=== PATIENT | male | born 1940 | race Caucasian/White ===

== ENCOUNTER 2016-05-02 12:40 | Emergency (ER) | payer MEDICARE, OTHER ==
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
[2016-05-02] MEDS ORDERED: cefTRIAXone 2 GM Vial IVPUSH ONE (12:50)
[2016-05-02] MEDS ORDERED: Acetaminophen 325 MG Tab PO ONE (12:50)
[2016-05-02] MEDS ORDERED: Albuterol/Ipratropium 3.0-0.5 MG/3 ML Neb Soln NEB ONE (12:51)
[2016-05-02] MEDS ORDERED: methylPREDNISolone Sodium Succinate 125 MG/2 ML SDV IVPUSH ONE (13:00)
[2016-05-02 13:29] LABS: O2 DELIVERY DEVICE ROOM AIR; O2 FLOW RATE 0; O2 SATURATION ARTERIAL 94 % (95-98); PCO2 ARTERIAL 30 mm/Hg0 (35-45); PO2 ARTERIAL 66 mm/Hg (80-100)
[2016-05-02 13:39] LABS: CHLORIDE,CL 103 mEq/L (98-106); SODIUM,NA 140 mEq/L (136-145)
[2016-05-02 14:45] VITALS: BP 153/69
[2016-05-02] MEDS ORDERED: Sodium Chloride 0.9% 3,000 ML ONE (15:20)
== END 2016-05-02 15:55 ==
LOC: CC.ED 12:40
DX: A41.9 Sepsis, unspecified organism (principal); D64.9 Anemia, unspecified; D69.9 Hemorrhagic condition, unspecified; R06.02 Shortness of breath; R05 Cough; E78.00 Pure hypercholesterolemia, unspecified; I10 Essential (primary) hypertension; Z88.2 Allergy status to sulfonamides; Z87.891 Personal history of nicotine dependence
CPT/HCPCS: 36415; 36600; 71020; 80053; 81001; 82270; 82550; 82803; 83605; 84484; 85025; 85610; 85730; 86140; 87040; 93005; 96374; 96375; 99285; A9270; J0696; J2930; J7030; 93010; 96361

== ENCOUNTER 2016-06-29 10:00 | Emergency (ER) | payer MEDICARE, OTHER ==
[2016-06-29] MEDS ORDERED: Sodium Chloride 0.9% 10 ML Syringe FLUSH PRN (10:35)
[2016-06-29] MEDS ORDERED: Levofloxacin/Dextrose 5%-Water 500 MG in Premix Bag 1 BAG IV SCH (11:00)
[2016-06-29] MEDS ORDERED: Acetaminophen 500 MG Tab PO PRN (11:14)
[2016-06-29 11:17] LABS: CHLORIDE,CL 102 mEq/L (98-106); SODIUM,NA 141 mEq/L (136-145)
--- NOTE | 2016-06-29 12:18 | EDM.PDOC ---
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 Has been in and out of the hospital for chemotherapy twice since then, and has only been home this time for a few days when he started running fever. 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 - Related Data Allergies/ADRs: Allergies Allergy/AdvReac Type Severity Reaction Status Date / Time meropenem [From Merrem] Allergy Rash Verified 06/29/16 10:09 Penicillins Allergy Hives Verified 06/29/16 10:09 Sulfa (Sulfonamide Allergy Hives Verified 06/29/16 10:09 Antibiotics) Home Meds: Home Meds atorvaSTATin [Lipitor] 10 mg PO DAILY 06/25/15 [History] metFORMIN [Glucophage] 850 mg PO BID 05/02/16 [History] Amiodarone HCl [Amiodarone HCl] 200 mg PO DAILY 06/26/16 [History] Furosemide [Furosemide] 20 mg PO DAILY 06/26/16 [History] Insulin Aspart [NovoLOG] 4 - 15 unit SUBCUT WITHMEALSANDBED 06/26/16 [History] Insulin Aspart [NovoLOG] 9 unit SUBCUT TIDAC 06/26/16 [History] Insulin Glarg,Human.Rec.Analog [LantUS Solostar] 20 unit SUBCUT QAM 06/26/16 [ History] Metoprolol Tartrate [Metoprolol Tartrate] 12.5 mg PO BID 06/26/16 [History] traZODone 100 mg PO BEDTIME 06/26/16 [History] Past Medical History Cardiovascular History: Reports: High cholesterol, Hypertension Musculoskeletal History: Reports: Fracture, Osteoarthritis Psychiatric History: Reports: Anxiety Endocrine/Metabolic History: Reports: Diabetes, type II Oncologic (Cancer) History: Reports: Leukemia, Other (see below) Other Oncologic History: ALL - Past Surgical History HEENT Surgical History: Reports: Cataract surgery GI Surgical History: Reports: Colonoscopy, Polypectomy Musculoskeletal Surgical History: Reports: Other (see below) Other Musculoskeletal Surgeries/Procedures:: left elbow surgery Oncologic Surgical History: Reports: Other (see below) Other Oncologic Surgeries/Procedures: bone marrow biopsy Social & Family History - Family History Family Medical History: Noncontributory Cardiac: Reports: Hypertension - Tobacco Use Smoking Status *Q: Former Smoker Years of Tobacco use: 50 Used Tobacco, but Quit: Yes Month Tobacco Last Used: 2013 - Recreational Drug Use Recreational Drug Use: No - Living Situation & Occupation Living situation: Reports: , with family ED ROS GENERAL - Review of Systems Review Of Systems: See Below Constitutional: Reports: fever, chills, malaise, weakness HEENT: Reports: No symptoms Respiratory: Reports: No Symptoms Cardiovascular: Reports: No symptoms Endocrine: Reports: no symptoms GI/Abdominal: Reports: No symptoms Musculoskeletal: Reports: no symptoms Skin: Reports: bruising Neurological: Reports: No Symptoms Psychiatric: Reports: No symptoms Hematologic/Lymphatic: Reports: anemia, easy bleeding ED EXAM, SEPSIS - Physical Exam Exam: See Below Exam Limited By: No limitations General Appearance: alert, WD/WN Ears: normal external exam Nose: other (Sligh nose bleed today) Throat/Mouth: Normal inspection Head: atraumatic Neck: normal inspection Respiratory/Chest: no respiratory distress Cardiovascular: normal peripheral pulses GI/Abdominal: normal bowel sounds Extremities: normal inspection Neurological: alert, oriented Psychiatric: normal affect Skin: Warm, Dry, Ecchymosis Course - Vital Signs Last Recorded V/S: Last Vital Signs Temp 104 F H 06/29/16 11:50 Pulse 87 06/29/16 10:03 Resp 20 06/29/16 10:03 BP 155/69 H 06/29/16 10:03 Pulse Ox 98 06/29/16 10:03 - Orders/Labs/Meds Orders: Active Orders 24 hr Category Date Time Status Oxygen Therapy, ED [RC] ASDIRECTED Care 06/29/16 12:12 Active Chest 2V [CR] Stat Exams 06/29/16 10:35 Taken CULTURE BLOOD [BC] Stat Lab 06/29/16 10:53 Received CULTURE BLOOD [BC] Stat Lab 06/29/16 10:57 Received RED BLOOD CELLS LP [BBK] Stat Lab 06/29/16 11:56 Ordered TYPE AND SCREEN [BBK] Stat Lab 06/29/16 11:56 Ordered UA W/MICROSCOPIC [URIN] Stat Lab 06/29/16 10:35 Uncollected Acetaminophen [Tylenol Extra Strength] Med 06/29/16 11:14 Active 1,000 mg PO Q4H PRN Levofloxacin/Dextrose 5%-Water [Levaquin in D5W 500 MG/ Med 06/29/16 11:00 Active 100 ML] 500 mg Premix Bag 1 bag IV Q24H Sodium Chloride 0.9% [Saline Flush] Med 06/29/16 10:35 Active 10 ml FLUSH ASDIRECTED PRN Blood Culture x2 Reflex Set [OM.PC] Stat Oth 06/29/16 10:35 Ordered Saline Lock Insert [OM.PC] Routine Oth 06/29/16 10:35 Ordered Medication Orders Acetaminophen (Tylenol Extra Strength) 1,000 mg PO Q4H PRN PRN Reason: Fever Last Admin: 06/29/16 11:20 Dose: 1,000 mg Levofloxacin/Dextrose 500 mg/ (Premix) 100 mls @ 100 mls/hr IV Q24H ELIZABETH Sodium Chloride (Saline Flush) 10 ml FLUSH ASDIRECTED PRN PRN Reason: Keep Vein Open Labs: Laboratory Tests 06/29/16 06/29/16 Range/Units 10:53 10:53 WBC 0.3 L* (5.0-10.0) 10^3/uL RBC 2.08 L (4.50-6.00) 10^6/uL Hgb 6.4 L* (14.0-18.0) g/dL Hct 20.2 L (40.0-54.0) % MCV 97.1 H (82.0-94.0) fL MCH 30.8 (27.0-32.0) pg MCHC 31.7 L (33.0-38.0) g/dL RDW Coeff of Thu 16.7 H (11.0-15.0) % Plt Count 0 L* (150-400) 10^3/uL MPV TNP Neut % (Auto) Cancelled Lymph % (Auto) Cancelled [place] % (Auto) Cancelled Eos % (Auto) Cancelled Baso % (Auto) Cancelled Neut # (Auto) Cancelled Lymph # (Auto) Cancelled [place] # (Auto) Cancelled Eos # (Auto) Cancelled Baso # (Auto) Cancelled Add Manual Diff Cancelled Sodium 141 (136-145) mEq/L Potassium 3.7 (3.5-5.0) mEq/L Chloride 102 (98-106) mEq/L Carbon Dioxide 28 (21-32) mmol/L BUN 15 (7-18) mg/dL Creatinine 0.9 (0.7-1.3) mg/dL Est Cr Clr Drug Dosing TNP Estimated GFR (MDRD) > 60 (>=60) mL/min Glucose 147 H (75-99) mg/dL Calcium 8.3 L (8.4-10.1) mg/dL Total Bilirubin 0.6 (0.0-1.0) mg/dL AST 11 L (15-37) U/L ALT 20 (12-78) U/L Alkaline Phosphatase 63 (46-116) U/L Total Protein 6.0 L (6.4-8.2) g/dL Albumin 2.9 L (3.4-5.0) g/dL Meds: Medications Generic Name Dose Route Start Last Admin Trade Name Freq PRN Reason Stop Dose Admin Acetaminophen 1,000 mg 06/29/16 11:14 06/29/16 11:20 Tylenol Extra Strength PO 1,000 mg Q4H PRN Administration Fever Levofloxacin/Dextrose 500 mg/ 100 mls @ 100 mls/hr 06/29/16 11:00 Premix IV Q24H ELIZABETH Sodium Chloride 10 ml 06/29/16 10:35 Saline Flush FLUSH ASDIRECTED PRN Keep Vein Open Discontinued Medications Generic Name Dose Route Start Last Admin Trade Name Freq PRN Reason Stop Dose Admin Vancomycin HCl 1,000 mg/ 250 mls @ 250 mls/hr 06/29/16 10:44 06/29/16 11:25 Sodium Chloride IV 06/29/16 11:43 250 mls/hr ONETIME ONE Administration Departure - Departure Time of Disposition: 12:24 Disposition: DC/Tfer to Acute Hospital 02 Condition: serious Clinical Impression: Systemic infection, Thrombocytopenia Sepsis Qualifiers: Sepsis type: sepsis due to unspecified organism Qualified Code(s): A41.9 - Sepsis, unspecified organism Anemia Qualifiers: Anemia type: unspecified type Qualified Code(s): D64.9 - Anemia, unspecified Forms: ED Department Discharge Care Plan Goals: I spoke with Dr Montez at [facility] in [place] who agreed to take patient in transfer by ALS ground unit. I then spoke with the hospitalist o arrange a direct admission the oncology floor. - My Orders Last 24 Hours: My Active Orders 06/29/16 10:35 Chest 2V [CR] Stat UA W/MICROSCOPIC [URIN] Stat Sodium Chloride 0.9% [Saline Flush] 10 ml FLUSH ASDIRECTED PRN Blood Culture x2 Reflex Set [OM.PC] Stat Saline Lock Insert [OM.PC] Routine 06/29/16 10:53 CULTURE BLOOD [BC] Stat 06/29/16 10:57 CULTURE BLOOD [BC] Stat 06/29/16 11:00 Levofloxacin/Dextrose 5%-Water [Levaquin in D5W 500 MG/100 ML] 500 mg Premix Bag 1 bag IV Q24H 06/29/16 11:14 Acetaminophen [Tylenol Extra Strength] 1,000 mg PO Q4H PRN 06/29/16 11:56 RED BLOOD CELLS LP [BBK] Stat TYPE AND SCREEN [BBK] Stat 06/29/16 12:12 Oxygen Therapy, ED [RC] ASDIRECTED - Assessment/Plan Last 24 Hours: My Active Orders 06/29/16 10:35 Chest 2V [CR] Stat UA W/MICROSCOPIC [URIN] Stat Sodium Chloride 0.9% [Saline Flush] 10 ml FLUSH ASDIRECTED PRN Blood Culture x2 Reflex Set [OM.PC] Stat Saline Lock Insert [OM.PC] Routine 06/29/16 10:53 CULTURE BLOOD [BC] Stat 06/29/16 10:57 CULTURE BLOOD [BC] Stat 06/29/16 11:00 Levofloxacin/Dextrose 5%-Water [Levaquin in D5W 500 MG/100 ML] 500 mg Premix Bag 1 bag IV Q24H 06/29/16 11:14 Acetaminophen [Tylenol Extra Strength] 1,000 mg PO Q4H PRN 06/29/16 11:56 RED BLOOD CELLS LP [BBK] Stat TYPE AND SCREEN [BBK] Stat 06/29/16 12:12 Oxygen Therapy, ED [RC] ASDIRECTED
[2016-06-29] MEDS ORDERED: Sodium Chloride 0.9% 250 ML IV SCH (13:00)
[2016-06-29 13:10] VITALS: BP 119/48
== END 2016-06-29 13:43 ==
LOC: CC.ED 10:00
DX: A41.9 Sepsis, unspecified organism (principal); D64.9 Anemia, unspecified; D69.6 Thrombocytopenia, unspecified; R04.0 Epistaxis; E78.00 Pure hypercholesterolemia, unspecified; I10 Essential (primary) hypertension; M19.90 Unspecified osteoarthritis, unspecified site; F41.9 Anxiety disorder, unspecified; E11.9 Type 2 diabetes mellitus without complications; Z88.0 Allergy status to penicillin; Z88.2 Allergy status to sulfonamides; Z88.8 Allergy status to other drugs, medicaments and biological substances; Z79.84 Long term (current) use of oral hypoglycemic drugs; Z79.4 Long term (current) use of insulin; Z79.899 Other long term (current) drug therapy; Z98.49 Cataract extraction status, unspecified eye; Z87.891 Personal history of nicotine dependence
CPT/HCPCS: 36415; 36430; 71020; 80053; 81001; 85027; 86850; 86900; 86901; 86920; 86922; 87040; 87077; 96365; 96367; 99285; A9270; J1956; J3370; J7050; P9016; 87186; 99284

== ENCOUNTER 2016-07-27 18:19 | Inpatient (IN) | payer MEDICARE, OTHER ==
[2016-07-27 18:52] LABS: CHLORIDE,CL 102 mEq/L (98-106); SODIUM,NA 139 mEq/L (136-145)
[2016-07-27] MEDS ORDERED: Ondansetron 4 MG Tab.DIS PO PRN (18:59)
[2016-07-27] MEDS ORDERED: Acetaminophen 325 MG Tab PO PRN (18:59)
--- NOTE | 2016-07-27 18:59 | EDM.PDOC ---
ED HPI GENERAL MEDICAL PROBLEM - General Chief Complaint: Fever Stated Complaint: fever Time Seen by Provider: 07/27/16 18:19 Source of Information: Reports: Patient History Limitations: Reports: No Limitations - History of Present Illness INITIAL COMMENTS - FREE TEXT/NARRATIVE: has a history of treatment of leukemia, started having chills today, and running fever. Onset: Today Duration: Hour(s): Severity: Moderate Associated Symptoms: Reports: No Other Symptoms - Related Data Allergies Allergy/AdvReac Type Severity Reaction Status Date / Time meropenem [From Merrem] Allergy Rash Verified 07/27/16 18:51 Penicillins Allergy Hives Verified 07/27/16 18:51 Sulfa (Sulfonamide Allergy Hives Verified 07/27/16 18:51 Antibiotics) Home Meds: Home Meds atorvaSTATin [Lipitor] 10 mg PO DAILY 06/25/15 [History] metFORMIN [Glucophage] 850 mg PO BID 05/02/16 [History] Amiodarone HCl [Amiodarone HCl] 200 mg PO DAILY 06/26/16 [History] Furosemide [Furosemide] 20 mg PO DAILY 06/26/16 [History] Insulin Aspart [NovoLOG] 4 - 15 unit SUBCUT WITHMEALSANDBED 06/26/16 [History] Insulin Aspart [NovoLOG] 9 unit SUBCUT TIDAC 06/26/16 [History] Insulin Glarg,Human.Rec.Analog [LantUS Solostar] 20 unit SUBCUT QAM 06/26/16 [ History] Metoprolol Tartrate [Metoprolol Tartrate] 12.5 mg PO BID 06/26/16 [History] traZODone 100 mg PO BEDTIME 06/26/16 [History] Past Medical History Cardiovascular History: Reports: High Cholesterol, Hypertension Musculoskeletal History: Reports: Fracture, Osteoarthritis Psychiatric History: Reports: Anxiety Endocrine/Metabolic History: Reports: Diabetes, Type II Oncologic (Cancer) History: Reports: Leukemia, Other (See Below) Other Oncologic History: ALL - Past Surgical History HEENT Surgical History: Reports: Cataract Surgery Musculoskeletal Surgical History: Reports: Other (See Below) Oncologic Surgical History: Reports: Other (See Below) Social & Family History - Family History Family Medical History: Noncontributory Cardiac: Reports: Hypertension - Tobacco Use Smoking Status *Q: Former Smoker Years of Tobacco use: 50 Used Tobacco, but Quit: Yes Month Tobacco Last Used: 2013 - Recreational Drug Use Recreational Drug Use: No - Living Situation & Occupation Living situation: Reports: , with Family ED ROS GENERAL - Review of Systems Review Of Systems: See Below Constitutional: Reports: No Symptoms, Fever, Chills HEENT: Reports: No Symptoms Respiratory: Reports: No Symptoms Cardiovascular: Reports: No Symptoms Endocrine: Reports: No Symptoms GI/Abdominal: Reports: No Symptoms : Reports: No Symptoms Musculoskeletal: Reports: No Symptoms Skin: Reports: No Symptoms Neurological: Reports: No Symptoms Psychiatric: Reports: No Symptoms Hematologic/Lymphatic: Reports: No Symptoms Immunologic: Reports: No Symptoms ED EXAM, SEPSIS - Physical Exam Exam: See Below Exam Limited By: No Limitations General Appearance: Alert, WD/WN Ears: Normal External Exam Nose: Normal Inspection Throat/Mouth: Normal Inspection Head: Atraumatic, Normocephalic Respiratory/Chest: No Respiratory Distress, Lungs Clear Cardiovascular: Normal Peripheral Pulses GI/Abdominal: Normal Bowel Sounds, Soft Neurological: Alert, Oriented Psychiatric: Normal Affect Skin: Warm, Dry Course - Orders/Labs/Meds Orders: Active Orders 24 hr Category Date Time Status Chest 2V [CR] Stat Exams 07/27/16 18:33 Taken COMPREHENSIVE METABOLIC PN,CMP [CHEM] Routine Lab 07/27/16 18:31 Received CULTURE BLOOD [BC] Routine Lab 07/27/16 18:31 Received CULTURE BLOOD [BC] Stat Lab 07/27/16 18:32 Received Labs: Laboratory Tests 07/27/16 07/27/16 Range/Units 18:31 18:39 WBC 0.2 L* (5.0-10.0) 10^3/uL RBC 2.49 L (4.50-6.00) 10^6/uL Hgb 7.9 L* (14.0-18.0) g/dL Hct 24.4 L (40.0-54.0) % MCV 98.0 H (82.0-94.0) fL MCH 31.7 (27.0-32.0) pg MCHC 32.4 L (33.0-38.0) g/dL RDW Coeff of Thu 16.8 H (11.0-15.0) % Plt Count 22 L* (150-400) 10^3/uL Neut % (Auto) 4.8 L (35-85) % Lymph % (Auto) 61.9 H (10-55) % [place] % (Auto) 14.3 (0-16) % Eos % (Auto) 9.5 H (0-5) % Baso % (Auto) 9.5 H (0-3) % Neut # (Auto) 0.01 L (1.80-7.00) 10^3/uL Lymph # (Auto) 0.13 L (1.00-4.80) 10^3/uL [place] # (Auto) 0.03 (0.00-0.80) 10^3/uL Eos # (Auto) 0.02 (0.00-0.45) 10^3/uL Baso # (Auto) 0.02 10^3/uL Urine Color Dark yellow (YELLOW) Urine Appearance Clear (CLEAR) Urine pH 5.5 (4.5-8.0) Ur Specific [place] 1.028 H (1.003-1.020) Urine Protein 100 H (NEGATIVE) mg/dL Urine Glucose (UA) Negative (NEGATIVE) mg/dL Urine Ketones Trace H (NEGATIVE) mg/dL Urine Occult Blood Negative (NEGATIVE) Urine Nitrite Negative (NEGATIVE) Urine Bilirubin Small H (NEGATIVE) Urine Urobilinogen 0.2 (0.2-1.0) EU/dL Ur Leukocyte Esterase Negative (NEGATIVE) Urine RBC Not seen (0-5) /HPF Urine WBC Not seen (0-5) /HPF Ur Squamous Epith Cells Few H (NOT SEEN) /HPF Urine Bacteria Occasional H (NOT SEEN) /HPF Urine Mucus Occasional H (NOT SEEN) /HPF Departure - Departure Time of Disposition: 18:57 ( who suggested admission to the hospital and broad spectrum anibiotics for a few days. if patient does not respond she may transfer him to [place]) Disposition: Admitted As Inpatient 67 Clinical Impression: Sepsis, Sepsis - Discharge Information Forms: ED Department Discharge - My Orders Last 24 Hours: My Active Orders 07/27/16 18:33 Chest 2V [CR] Stat - Assessment/Plan Last 24 Hours: My Active Orders 07/27/16 18:33 Chest 2V [CR] Stat
[2016-07-27] MEDS ORDERED: Insulin Aspart 100 Units/ML 3 ML Pen SUBCUT STA (19:11)
[2016-07-27] MEDS ORDERED: Vancomycin 500 MG SDV IV SCH (19:15)
[2016-07-27] MEDS ORDERED: Levofloxacin/Dextrose 5%-Water 500 MG in Premix Bag 1 BAG IV SCH (19:15)
[2016-07-27] MEDS ORDERED: traZODone 50 MG Tab PO SCH (20:00)
[2016-07-27] MEDS ORDERED: Sodium Chloride 0.9% 0 ML ONE (21:21)
[2016-07-27] MEDS ORDERED: Sodium Chloride 0.9% 250 ML ONE (21:23)
[2016-07-27] MEDS: Metoprolol Tartrate 25 MG Tab PO SCH (21:33)
[2016-07-27] MEDS: Acetaminophen 500 MG Tab PO PRN (21:35)
[2016-07-27] MEDS ORDERED: Insulin Aspart 100 Units/ML 3 ML Pen ONE (21:39)
[2016-07-27] MEDS ORDERED: Vancomycin 500 MG SDV ONE (22:47)
[2016-07-27] MEDS ORDERED: Vancomycin 1.5 GM in Sodium Chloride 0.9% 500 ML IV SCH (23:00)
[2016-07-28] MEDS: Acetaminophen 500 MG Tab PO PRN ×3 (01:30→10:45)
[2016-07-28] MEDS ORDERED: Furosemide 20 MG Tab PO SCH (08:00)
[2016-07-28] MEDS ORDERED: atorvaSTATin 10 MG Tab PO SCH (08:00)
[2016-07-28] MEDS ORDERED: Insulin Detemir 100 Units/ML 3 ML Pen SUBCUT SCH ×2 (08:00→08:40)
[2016-07-28] MEDS ORDERED: Insulin Aspart 100 Units/ML 3 ML Pen SUBCUT SCH (08:00)
[2016-07-28] MEDS ORDERED: INSULIN GLARG HUMAN REC ANALOG 20 UNIT SUBCUT SCH (08:00)
[2016-07-28] MEDS ORDERED: Amiodarone 200 MG Tab PO SCH (08:00)
[2016-07-28] MEDS ORDERED: [UNRECOGNIZED DRUG - OTHER] SUBCUT SCH (08:00)
[2016-07-28 08:12] LABS: CHLORIDE,CL 103 mEq/L (98-106); SODIUM,NA 140 mEq/L (136-145)
[2016-07-28] MEDS: Metoprolol Tartrate 25 MG Tab PO SCH (08:14)
[2016-07-28 08:18] VITALS: BP 145/67
--- NOTE | 2016-07-28 10:08 | PCM.PN ---
- General Info Date of Service: 07/28/16 (Platelet count dropped from 22,000 to 10,000 in the last 24 hours. I spoke with the patient about the need for platelet transfusion which we cannot do here) Admission Dx/Problem (Free Text): Fever, thrombocytopenia, sepsis Functional Status: Reports: pain controlled - Review of Systems General: Reports: No Symptoms HEENT: Reports: no symptoms Pulmonary: Reports: no symptoms Cardiovascular: Reports: No Symptoms Musculoskeletal: Reports: no symptoms Skin: Reports: no symptoms Neurological: Reports: No Symptoms Psychiatric: Reports: no symptoms Systems Review Comment:: Patient is stable at this time. Had a high fever last night. Platelet count is lower today. - Patient Data Vitals - most recent: Last Vital Signs Temp 99.0 F 07/28/16 08:00 Pulse 81 07/28/16 08:14 Resp 24 H 07/28/16 08:00 BP 145/67 H 07/28/16 08:14 Pulse Ox 96 07/28/16 08:00 Weight - most recent: 243 lb 2.718 oz Lab Results last 24 hrs: Laboratory Results - last 24 hr 07/28/16 07/28/16 07/28/16 Range/Units 07:30 07:30 08:16 WBC 0.2 L* (5.0-10.0) 10^3/uL RBC 2.36 L (4.50-6.00) 10^6/uL Hgb 7.4 L* (14.0-18.0) g/dL Hct 23.0 L (40.0-54.0) % MCV 97.5 H (82.0-94.0) fL MCH 31.4 (27.0-32.0) pg MCHC 32.2 L (33.0-38.0) g/dL RDW Coeff of Thu 16.5 H (11.0-15.0) % Plt Count 10 L* (150-400) 10^3/uL Neut % (Auto) 8.7 L (35-85) % Lymph % (Auto) 60.9 H (10-55) % [place] % (Auto) 17.4 H (0-16) % Eos % (Auto) 8.7 H (0-5) % Baso % (Auto) 4.3 H (0-3) % Neut # (Auto) 0.02 L (1.80-7.00) 10^3/uL Lymph # (Auto) 0.14 L (1.00-4.80) 10^3/uL [place] # (Auto) 0.04 (0.00-0.80) 10^3/uL Eos # (Auto) 0.02 (0.00-0.45) 10^3/uL Baso # (Auto) 0.01 10^3/uL Sodium 140 (136-145) mEq/L Potassium 3.7 (3.5-5.0) mEq/L Chloride 103 (98-106) mEq/L Carbon Dioxide 28 (21-32) mmol/L BUN 10 (7-18) mg/dL Creatinine 1.0 (0.7-1.3) mg/dL Est Cr Clr Drug Dosing 69.03 mL/min Estimated GFR (MDRD) > 60 (>=60) mL/min Glucose 158 H (75-99) mg/dL POC Glucose 163 H (75-105) mg/dl Calcium 8.5 (8.4-10.1) mg/dL Total Bilirubin 0.5 (0.0-1.0) mg/dL AST 7 L (15-37) U/L ALT 14 (12-78) U/L Alkaline Phosphatase 67 (46-116) U/L Total Protein 5.7 L (6.4-8.2) g/dL Albumin 2.8 L (3.4-5.0) g/dL Med Orders - Current: Current Medications Acetaminophen (Tylenol Extra Strength) 1,000 mg PO Q4H PRN PRN Reason: Fever Last Admin: 07/28/16 05:36 Dose: 1,000 mg Amiodarone HCl (Cordarone) 200 mg PO DAILY [facility] Last Admin: 07/28/16 08:10 Dose: 200 mg Atorvastatin Calcium (Lipitor) 10 mg PO DAILY [facility] Last Admin: 07/28/16 08:17 Dose: 10 mg Furosemide (Lasix) 20 mg PO DAILY [facility] Last Admin: 07/28/16 08:11 Dose: 20 mg Levofloxacin/Dextrose 500 mg/ (Premix) 100 mls @ 100 mls/hr IV Q24H [facility] Last Admin: 07/27/16 21:30 Dose: 100 mls/hr Vancomycin HCl 1.5 gm/ Sodium (Chloride) 500 mls @ 250 mls/hr IV Q12H [facility] Insulin Aspart (Novolog) 0 unit SUBCUT WITHMEALSANDBED [facility] PRN Reason: Protocol Last Admin: 07/28/16 09:03 Dose: 2 units Insulin Detemir (Levemir) 20 unit SUBCUT QAM [facility] Last Admin: 07/28/16 08:53 Dose: 20 units Metformin HCl (Glucophage) 850 mg PO BID [facility] Last Admin: 07/28/16 08:11 Dose: 850 mg Metoprolol Tartrate (Lopressor) 12.5 mg PO BID [facility] Last Admin: 07/28/16 08:14 Dose: 12.5 mg Ondansetron HCl (Zofran Odt) 4 mg PO Q4H PRN PRN Reason: nausea, able to take PO Trazodone HCl (Trazodone) 100 mg PO BEDTIME [facility] Last Admin: 07/27/16 21:19 Dose: Not Given Vancomycin HCl (Pharmacy To Dose - Vancomycin) 1 dose .XX Q12H [facility] Discontinued Medications Acetaminophen (Tylenol) 650 mg PO Q4H PRN PRN Reason: Pain (Mild 1-3)/fever Sodium Chloride (Normal Saline) Confirm Administered Dose 500 mls @ as directed .ROUTE .STK-MED ONE Stop: 07/27/16 21:22 Last Admin: 07/27/16 21:19 Dose: Not Given Sodium Chloride (Normal Saline) Confirm Administered Dose 250 mls @ as directed .ROUTE .STK-MED ONE Stop: 07/27/16 21:24 Last Admin: 07/27/16 21:19 Dose: Not Given Vancomycin HCl 1 gm/ Sodium (Chloride) 250 mls @ 167 mls/hr IV Q12H [facility] Vancomycin HCl 1 gm/ Sodium (Chloride) 250 mls @ 167 mls/hr IV ONETIME ONE Stop: 07/27/16 22:52 Last Admin: 07/27/16 22:00 Dose: Not Given Vancomycin HCl 1.5 gm/ Sodium (Chloride) 500 mls @ 250 mls/hr IV Q24H [facility] Stop: 07/28/16 00:59 Last Admin: 07/27/16 22:38 Dose: 250 mls/hr Insulin Aspart (Novolog) [address] [facility] PRN Reason: Protocol Stop: 07/27/16 19:12 Last Admin: 07/27/16 21:34 Dose: 2 units Insulin Aspart (Novolog) Confirm Administered Dose 300 unit .ROUTE .STK-MED ONE Stop: 07/27/16 21:40 Last Admin: 07/27/16 21:52 Dose: Not Given Vancomycin HCl (Vancomycin) 1,000 mg IV Q12H [facility] Last Admin: 07/27/16 21:23 Dose: Not Given Vancomycin HCl (Pharmacy To Dose - Vancomycin) 1 dose .XX ASDIRECTED [facility] Vancomycin HCl (Vancomycin) Confirm Administered Dose 500 mg .ROUTE .STK-MED ONE Stop: 07/27/16 22:48 Last Admin: 07/27/16 22:55 Dose: Not Given - Problem List Review Problem List Initiated/Reviewed/Updated: Yes - My Orders Last 24 Hours: My Active Orders 07/27/16 20:18 Up ad Helen [RC] .PRN 07/27/16 20:19 Acetaminophen [Tylenol Extra Strength] 1,000 mg PO Q4H PRN 07/28/16 08:00 Insulin Aspart [NovoLOG] See Protocol SUBCUT WITHMEALSANDBED Vancomycin Pharmacy to Dose [Pharmacy to Dose - Vancomycin] 1 dose .XX Q12H 07/28/16 08:40 Insulin Detemir [Levemir] 20 unit SUBCUT QAM 07/28/16 11:00 Vancomycin 1.5 gm Sodium Chloride 0.9% [Normal Saline] 500 ml IV Q12H 07/29/16 06:00 CBC WITH AUTO DIFF [HEME] DAILY CMP [COMPREHENSIVE METABOLIC PN,CMP] [CHEM] DAILY 07/30/16 06:00 CBC WITH AUTO DIFF [HEME] DAILY CMP [COMPREHENSIVE METABOLIC PN,CMP] [CHEM] DAILY
--- NOTE | 2016-07-28 10:19 | PCM.DCSUM1 ---
Discharge Summary - Hospital Course Free Text/Narrative:: Patient was admitted to the hospital yesterday after complaing o fever. Patient is a cancer patient of Dr Cooper. I spoke to Dr. Curiel who suggested I admit the patient to inpatient and starting antibiotics to see if he responded. This morning his platelet counts are down from 22,000 to 10,000 and will need platelet transfusion. I spoke with Dr Curiel again this morning who agrred to have the patient transferred through the hospitalist service. - Discharge Data Discharge Date: 07/28/16 Discharge Disposition: DC/Tfer to Acute Hospital 02 Condition: Fair - Patient Instructions Diet: Usual Diet as Tolerated Driving: Do Not Drive Showering/Bathing: May Shower - Discharge Plan Home Medications: Home Meds atorvaSTATin [Lipitor] 10 mg PO DAILY 06/25/15 [History] metFORMIN [Glucophage] 850 mg PO BID 05/02/16 [History] Amiodarone HCl [Amiodarone HCl] 200 mg PO DAILY 06/26/16 [History] Furosemide [Furosemide] 40 mg PO DAILY 06/26/16 [History] Insulin Aspart [NovoLOG] 4 - 15 unit SUBCUT WITHMEALSANDBED 06/26/16 [History] Insulin Glarg,Human.Rec.Analog [LantUS Solostar] 20 unit SUBCUT QAM 06/26/16 [ History] Metoprolol Tartrate [Metoprolol Tartrate] 12.5 mg PO BID 06/26/16 [History] Forms: ED Department Discharge Referrals: Dariel Amato MD [Primary Care Provider] - - Discharge Summary/Plan Comment DC Time >30 min.: No - Patient Data Vitals - Most Recent: Last Vital Signs Temp 99.0 F 07/28/16 08:00 Pulse 81 07/28/16 08:14 Resp 24 H 07/28/16 08:00 BP 145/67 H 07/28/16 08:14 Pulse Ox 96 07/28/16 08:00 Weight - Most Recent: 243 lb 2.718 oz Lab Results - Last 24 hrs: Laboratory Results - last 24 hr 07/28/16 07/28/16 07/28/16 Range/Units 07:30 07:30 08:16 WBC 0.2 L* (5.0-10.0) 10^3/uL RBC 2.36 L (4.50-6.00) 10^6/uL Hgb 7.4 L* (14.0-18.0) g/dL Hct 23.0 L (40.0-54.0) % MCV 97.5 H (82.0-94.0) fL MCH 31.4 (27.0-32.0) pg MCHC 32.2 L (33.0-38.0) g/dL RDW Coeff of Thu 16.5 H (11.0-15.0) % Plt Count 10 L* (150-400) 10^3/uL Neut % (Auto) 8.7 L (35-85) % Lymph % (Auto) 60.9 H (10-55) % [place] % (Auto) 17.4 H (0-16) % Eos % (Auto) 8.7 H (0-5) % Baso % (Auto) 4.3 H (0-3) % Neut # (Auto) 0.02 L (1.80-7.00) 10^3/uL Lymph # (Auto) 0.14 L (1.00-4.80) 10^3/uL [place] # (Auto) 0.04 (0.00-0.80) 10^3/uL Eos # (Auto) 0.02 (0.00-0.45) 10^3/uL Baso # (Auto) 0.01 10^3/uL Sodium 140 (136-145) mEq/L Potassium 3.7 (3.5-5.0) mEq/L Chloride 103 (98-106) mEq/L Carbon Dioxide 28 (21-32) mmol/L BUN 10 (7-18) mg/dL Creatinine 1.0 (0.7-1.3) mg/dL Est Cr Clr Drug Dosing 69.03 mL/min Estimated GFR (MDRD) > 60 (>=60) mL/min Glucose 158 H (75-99) mg/dL POC Glucose 163 H (75-105) mg/dl Calcium 8.5 (8.4-10.1) mg/dL Total Bilirubin 0.5 (0.0-1.0) mg/dL AST 7 L (15-37) U/L ALT 14 (12-78) U/L Alkaline Phosphatase 67 (46-116) U/L Total Protein 5.7 L (6.4-8.2) g/dL Albumin 2.8 L (3.4-5.0) g/dL Med Orders - Current: Current Medications Acetaminophen (Tylenol Extra Strength) 1,000 mg PO Q4H PRN PRN Reason: Fever Last Admin: 07/28/16 05:36 Dose: 1,000 mg Amiodarone HCl (Cordarone) 200 mg PO DAILY [facility] Last Admin: 07/28/16 08:10 Dose: 200 mg Atorvastatin Calcium (Lipitor) 10 mg PO DAILY [facility] Last Admin: 07/28/16 08:17 Dose: 10 mg Furosemide (Lasix) 20 mg PO DAILY [facility] Last Admin: 07/28/16 08:11 Dose: 20 mg Levofloxacin/Dextrose 500 mg/ (Premix) 100 mls @ 100 mls/hr IV Q24H [facility] Last Admin: 07/27/16 21:30 Dose: 100 mls/hr Vancomycin HCl 1.5 gm/ Sodium (Chloride) 500 mls @ 250 mls/hr IV Q12H [facility] Insulin Aspart (Novolog) 0 unit SUBCUT WITHMEALSANDBED [facility] PRN Reason: Protocol Last Admin: 07/28/16 09:03 Dose: 2 units Insulin Detemir (Levemir) 20 unit SUBCUT QAM [facility] Last Admin: 07/28/16 08:53 Dose: 20 units Metformin HCl (Glucophage) 850 mg PO BID [facility] Last Admin: 07/28/16 08:11 Dose: 850 mg Metoprolol Tartrate (Lopressor) 12.5 mg PO BID [facility] Last Admin: 07/28/16 08:14 Dose: 12.5 mg Ondansetron HCl (Zofran Odt) 4 mg PO Q4H PRN PRN Reason: nausea, able to take PO Trazodone HCl (Trazodone) 100 mg PO BEDTIME [facility] Last Admin: 07/27/16 21:19 Dose: Not Given Vancomycin HCl (Pharmacy To Dose - Vancomycin) 1 dose .XX Q12H [facility] Discontinued Medications Acetaminophen (Tylenol) 650 mg PO Q4H PRN PRN Reason: Pain (Mild 1-3)/fever Sodium Chloride (Normal Saline) Confirm Administered Dose 500 mls @ as directed .ROUTE .STK-MED ONE Stop: 07/27/16 21:22 Last Admin: 07/27/16 21:19 Dose: Not Given Sodium Chloride (Normal Saline) Confirm Administered Dose 250 mls @ as directed .ROUTE .STK-MED ONE Stop: 07/27/16 21:24 Last Admin: 07/27/16 21:19 Dose: Not Given Vancomycin HCl 1 gm/ Sodium (Chloride) 250 mls @ 167 mls/hr IV Q12H [facility] Vancomycin HCl 1 gm/ Sodium (Chloride) 250 mls @ 167 mls/hr IV ONETIME ONE Stop: 07/27/16 22:52 Last Admin: 07/27/16 22:00 Dose: Not Given Vancomycin HCl 1.5 gm/ Sodium (Chloride) 500 mls @ 250 mls/hr IV Q24H [facility] Stop: 07/28/16 00:59 Last Admin: 07/27/16 22:38 Dose: 250 mls/hr Insulin Aspart (Novolog) 0 unit SUBCUT WITHMEALSANDBED [facility] PRN Reason: Protocol Stop: 07/27/16 19:12 Last Admin: 07/27/16 21:34 Dose: 2 units Insulin Aspart (Novolog) Confirm Administered Dose 300 unit .ROUTE .STK-MED ONE Stop: 07/27/16 21:40 Last Admin: 07/27/16 21:52 Dose: Not Given Vancomycin HCl (Vancomycin) 1,000 mg IV Q12H [facility] Last Admin: 07/27/16 21:23 Dose: Not Given Vancomycin HCl (Pharmacy To Dose - Vancomycin) 1 dose .XX ASDIRECTED [facility] Vancomycin HCl (Vancomycin) Confirm Administered Dose 500 mg .ROUTE .STK-MED ONE Stop: 07/27/16 22:48 Last Admin: 07/27/16 22:55 Dose: Not Given *Q Meaningful Use (DIS) - VTE *Q VTE Criteria *Q: - Stroke *Q Stroke Criteria *Q: - AMI *Q AMI Criteria *Q:
[2016-07-28] MEDS ORDERED: Vancomycin 1.5 GM in Sodium Chloride 0.9% 500 ML IV SCH (11:00)
== END 2016-07-28 11:45 | DRG 872 ==
LOC: CC.ED 18:19 → CC.MS 19:20 → CC.ED 19:50
PROVIDERS: ADMIT Nurse Practitioner Family; ATTEND Family Medicine
DX: A41.9 Sepsis, unspecified organism (principal); D61.810 Antineoplastic chemotherapy induced pancytopenia; R50.9 Fever, unspecified; C91.00 Acute lymphoblastic leukemia not having achieved remission; E78.00 Pure hypercholesterolemia, unspecified; I10 Essential (primary) hypertension; M19.90 Unspecified osteoarthritis, unspecified site; F41.9 Anxiety disorder, unspecified; D69.6 Thrombocytopenia, unspecified; E11.9 Type 2 diabetes mellitus without complications; Z88.2 Allergy status to sulfonamides; Z88.0 Allergy status to penicillin; Z79.4 Long term (current) use of insulin; Z87.891 Personal history of nicotine dependence; Z79.899 Other long term (current) drug therapy
CPT/HCPCS: 71020; 96372 ×5; 99284; 85025; 81001; 36415; 80053; 87186; 87077; 87040 ×2; J1447 ×5; 82962; A9270-GY; J1642; J1815-GY; J1956; J3370; J7040

== ENCOUNTER 2016-08-24 21:46 | Emergency (ER) | payer MEDICARE, OTHER ==
[2016-08-24 21:52] VITALS: BP 169/66
--- NOTE | 2016-08-24 21:58 | EDM.PDOC ---
ED HPI GENERAL MEDICAL PROBLEM - General Chief Complaint: Fever Stated Complaint: TEMP Time Seen by Provider: 08/24/16 21:50 Source of Information: Reports: Patient, Family History Limitations: Reports: No Limitations - History of Present Illness INITIAL COMMENTS - FREE TEXT/NARRATIVE: This patient is a 76 year old male that presents to the ER. Patient reports that he was at home and he has been instructed by his oncologist to take his temperature at times. He reports he has a history of leukemia. Patient reports he took his temperature tonight at 6pm and it was 99.9. His instructed him to take Tylenol at that time, but he did not per . The patient then at 8pm retook his temperature and his temperature at home was 100.5. The patient reports at this time he took Tylenol. The patient reports that he has no symptoms at all. He reports that he did have dizziness this past week, had to get one button of platelets yesterday in [place], then after this he was not dizzy anymore. Patient reports that yesterday during this infusion he did not have a temperature. The patient denies lazcano, dizziness, neck pain, neck stiffness , congestion, drainage, cough, dental pain, chest pain, shortness of breath, back pain, abdominal pain, n, v, d, urinary/bowel changes, rashes. The patient denies any pain and any complaints. The patient reports he is just here because his temperature was elevated. Onset: Today Onset Date: 08/24/16 Onset Time: 18:00 Severity: Mild Improves with: Reports: None Worsens with: Reports: None Associated Symptoms: Reports: Fever/Chills. Denies: Confusion, Chest Pain, Cough, cough w sputum, Diaphoresis, Headaches, Loss of Appetite, Malaise, Nausea /Vomiting, Rash, Seizure, Shortness of Breath, Syncope, Weakness Treatments PACU NURSE: Reports: Acetaminophen - Related Data Allergies Allergy/AdvReac Type Severity Reaction Status Date / Time meropenem [From Merrem] Allergy Rash Verified 08/24/16 21:52 Penicillins Allergy Hives Verified 08/24/16 21:52 Sulfa (Sulfonamide Allergy Hives Verified 08/24/16 21:52 Antibiotics) Home Meds: Home Meds atorvaSTATin [Lipitor] 10 mg PO DAILY 06/25/15 [History] metFORMIN [Glucophage] 850 mg PO BID 05/02/16 [History] Amiodarone HCl [Amiodarone HCl] 200 mg PO DAILY 06/26/16 [History] Furosemide [Furosemide] 40 mg PO DAILY 06/26/16 [History] Insulin Aspart [NovoLOG] 4 - 15 unit SUBCUT WITHMEALSANDBED 06/26/16 [History] Insulin Glarg,Human.Rec.Analog [LantUS Solostar] 20 unit SUBCUT QAM 06/26/16 [ History] Metoprolol Tartrate [Metoprolol Tartrate] 12.5 mg PO BID 06/26/16 [History] Enoxaparin Sodium 120 mg SUBCUT BID 08/19/16 [History] Potassium Chloride 40 meq PO DAILY 08/19/16 [History] amLODIPine Besylate [Amlodipine Besylate] 10 mg PO DAILY 08/19/16 [History] Past Medical History Cardiovascular History: Reports: Afib, Blood Clots/VTE/DVT, High Cholesterol, Hypertension Musculoskeletal History: Reports: Fracture, Osteoarthritis Psychiatric History: Reports: Anxiety Endocrine/Metabolic History: Reports: Diabetes, Type II, Obesity/BMI 30+ Hematologic History: Reports: Anemia, Blood Transfusion(s) Oncologic (Cancer) History: Reports: Leukemia, Other (See Below) Other Oncologic History: ALL - Past Surgical History HEENT Surgical History: Reports: Cataract Surgery GI Surgical History: Reports: Colonoscopy, Polypectomy Musculoskeletal Surgical History: Reports: ORIF, Other (See Below) Oncologic Surgical History: Reports: Other (See Below) Other Oncologic Surgeries/Procedures: bone marrow biopsy Social & Family History - Family History Family Medical History: Noncontributory Cardiac: Reports: Hypertension - Tobacco Use Smoking Status *Q: Former Smoker Years of Tobacco use: 50 Used Tobacco, but Quit: Yes Month Tobacco Last Used: 2013 - Caffeine Use Caffeine Use: Reports: Coffee - Recreational Drug Use Recreational Drug Use: No - Living Situation & Occupation Living situation: Reports: , with Family ED ROS GENERAL - Review of Systems Review Of Systems: See Below Constitutional: Reports: Fever. Denies: Chills, Malaise, Weakness, Fatigue, Night Sweats, Diaphoresis, Decreased Appetite HEENT: Reports: No Symptoms Respiratory: Reports: No Symptoms Cardiovascular: Reports: No Symptoms Endocrine: Reports: No Symptoms GI/Abdominal: Reports: No Symptoms : Reports: No Symptoms Musculoskeletal: Reports: No Symptoms Skin: Reports: No Symptoms Neurological: Reports: No Symptoms Psychiatric: Reports: No Symptoms Hematologic/Lymphatic: Reports: No Symptoms Immunologic: Reports: No Symptoms ED EXAM, GENERAL - Physical Exam Exam: See Below Exam Limited By: No Limitations General Appearance: Alert, WD/WN, No Apparent Distress Eye Exam: Bilateral Eye: Normal Inspection, PERRL Ears: Normal External Exam, Normal Canal, Hearing Grossly Normal, Normal TMs Ear Exam: Bilateral Ear: Auricle Normal, Canal Normal, TM normal Nose: Normal Inspection, Normal Mucosa, No Blood Throat/Mouth: Normal Inspection, Normal Lips, Normal Teeth, Normal Gums, Normal Oropharynx, Normal Voice, No Airway Compromise Head: Atraumatic, Normocephalic Neck: Normal Inspection, Supple, Non-Tender, Full Range of Motion Respiratory/Chest: No Respiratory Distress, Lungs Clear, Normal Breath Sounds, No Accessory Muscle Use Cardiovascular: Normal Peripheral Pulses, Regular Rate, Rhythm, No Edema, No Gallop, No JVD, No Murmur, No Rub Peripheral Pulses: 2+: Radial (L), Radial (R), Posterior Tibial (L), Posterior Tibial (R) GI/Abdominal: Normal Bowel Sounds, Soft, Non-Tender, No Organomegaly, No Distention, No Abnormal Bruit, No Mass, Pelvis Stable Back Exam: Normal Inspection, Full Range of Motion. No: CVA Tenderness (L), CVA Tenderness (R) Extremities: Normal Inspection, Normal Range of Motion, Non-Tender, No Pedal Edema, Normal Capillary Refill Neurological: Alert, Oriented, Normal Cognition, Normal Gait, No Motor/Sensory Deficits Psychiatric: Normal Affect, Normal Mood Skin Exam: Warm, Dry, Intact, Normal Color, No Rash Lymphatic: No Adenopathy Course - Vital Signs Last Recorded V/S: Last Vital Signs Temp 100.5 F 08/24/16 21:47 Pulse 83 08/24/16 21:47 Resp 18 08/24/16 21:47 BP 169/66 H 08/24/16 21:47 Pulse Ox 99 08/24/16 21:47 - Orders/Labs/Meds Orders: Active Orders 24 hr Category Date Time Status Chest 2V [CR] Stat Exams 08/24/16 21:51 Taken CULTURE BLOOD [BC] Stat Lab 08/24/16 21:50 Received CULTURE BLOOD [BC] Stat Lab 08/24/16 22:00 Received Levofloxacin/Dextrose 5%-Water [Levaquin in D5W 750 MG/ Med 08/24/16 23:37 Ordered 150 ML] 750 mg Premix Bag 1 bag IV ONETIME Blood Culture x2 Reflex Set [OM.PC] Stat Oth 08/24/16 21:50 Ordered Peripheral IV Insertion Adult [OM.PC] Urgent Oth 08/24/16 22:56 Ordered Labs: Laboratory Tests 08/24/16 08/24/16 08/24/16 Range/Units 21:50 21:50 21:50 WBC 0.4 L* (5.0-10.0) 10^3/uL RBC 2.14 L (4.50-6.00) 10^6/uL Hgb 6.9 L* (14.0-18.0) g/dL Hct 21.5 L (40.0-54.0) % MCV 100.5 H (82.0-94.0) fL MCH 32.2 H (27.0-32.0) pg MCHC 32.1 L (33.0-38.0) g/dL RDW Coeff of Htu 16.7 H (11.0-15.0) % Plt Count 26 L* (150-400) 10^3/uL MPV TNP Neut % (Auto) Cancelled Lymph % (Auto) Cancelled [place] % (Auto) Cancelled Eos % (Auto) Cancelled Baso % (Auto) Cancelled Neut # (Auto) Cancelled Lymph # (Auto) Cancelled [place] # (Auto) Cancelled Eos # (Auto) Cancelled Baso # (Auto) Cancelled Add Manual Diff Cancelled Sodium 142 (136-145) mEq/L Potassium 4.8 (3.5-5.0) mEq/L Chloride 105 (98-106) mEq/L Carbon Dioxide 29 (21-32) mmol/L BUN 18 D (7-18) mg/dL Creatinine 1.1 (0.7-1.3) mg/dL Est Cr Clr Drug Dosing 61.80 mL/min Estimated GFR (MDRD) > 60 (>=60) mL/min Glucose 230 H (75-99) mg/dL Lactic Acid 2.3 H (0.4-2.0) mmol/L Calcium 8.8 (8.4-10.1) mg/dL Total Bilirubin 0.3 (0.0-1.0) mg/dL AST 6 L (15-37) U/L ALT 17 (12-78) U/L Alkaline Phosphatase 90 (46-116) U/L C-Reactive Protein 6.4 H (0.2-0.8) mg/dL Total Protein 6.3 L (6.4-8.2) g/dL Albumin 3.3 L (3.4-5.0) g/dL Urine Color (YELLOW) Urine Appearance (CLEAR) Urine pH (4.5-8.0) Ur Specific [place] (1.003-1.020) Urine Protein (NEGATIVE) mg/dL Urine Glucose (UA) (NEGATIVE) mg/dL Urine Ketones (NEGATIVE) mg/dL Urine Occult Blood (NEGATIVE) Urine Nitrite (NEGATIVE) Urine Bilirubin (NEGATIVE) Urine Urobilinogen (0.2-1.0) EU/dL Ur Leukocyte Esterase (NEGATIVE) Urine RBC (0-5) /HPF Urine WBC (0-5) /HPF Ur Squamous Epith Cells (NOT SEEN) /HPF 08/24/ Range/Units 23:17 WBC (5.0-10.0) 10^3/uL RBC (4.50-6.00) 10^6/uL Hgb (14.0-18.0) g/dL Hct (40.0-54.0) % MCV (82.0-94.0) fL MCH (27.0-32.0) pg MCHC (33.0-38.0) g/dL RDW Coeff of Thu (11.0-15.0) % Plt Count (150-400) 10^3/uL MPV Neut % (Auto) Lymph % (Auto) [place] % (Auto) Eos % (Auto) Baso % (Auto) Neut # (Auto) Lymph # (Auto) [place] # (Auto) Eos # (Auto) Baso # (Auto) Add Manual Diff Sodium (136-145) mEq/L Potassium (3.5-5.0) mEq/L Chloride (98-106) mEq/L Carbon Dioxide (21-32) mmol/L BUN (7-18) mg/dL Creatinine (0.7-1.3) mg/dL Est Cr Clr Drug Dosing mL/min Estimated GFR (MDRD) (>=60) mL/min Glucose (75-99) mg/dL Lactic Acid (0.4-2.0) mmol/L Calcium (8.4-10.1) mg/dL Total Bilirubin (0.0-1.0) mg/dL AST (15-37) U/L ALT (12-78) U/L Alkaline Phosphatase (46-116) U/L C-Reactive Protein (0.2-0.8) mg/dL Total Protein (6.4-8.2) g/dL Albumin (3.4-5.0) g/dL Urine Color Dark yellow (YELLOW) Urine Appearance Clear (CLEAR) Urine pH 5.5 (4.5-8.0) Ur Specific [place] 1.023 H (1.003-1.020) Urine Protein 100 H (NEGATIVE) mg/dL Urine Glucose (UA) Negative (NEGATIVE) mg/dL Urine Ketones Trace H (NEGATIVE) mg/dL Urine Occult Blood Negative (NEGATIVE) Urine Nitrite Negative (NEGATIVE) Urine Bilirubin Negative (NEGATIVE) Urine Urobilinogen 0.2 (0.2-1.0) EU/dL Ur Leukocyte Esterase Negative (NEGATIVE) Urine RBC 0-5 (0-5) /HPF Urine WBC 0-5 (0-5) /HPF Ur Squamous Epith Cells Occasional H (NOT SEEN) /HPF - Radiology Interpretation Free Text/Narrative:: CXR: No inltrates, no cardiac enlargement, no edema. - Re-Assessments/Exams Free Text/Narrative Re-Assessment/Exam: 08/24/16 23:15 I have called and spoke with Dr. Beverly who is the oncologist at [facility]. I have explained all patient labs, temperature, and patient presentation. He reports to have the patient transferred. The patient will need two units of PRBCs irradiated, that are not available at our facility. He would like the patient to be transfused at their facility. He would like us to start abx IV on the patient and transfer. We have also talked to Dr. Gonzalez hospitalist who has agreed to accept the patient. We will transfer via ground ambulance. 08/24/16 23:37 WE DO NOT HAVE ZYVOX AT OUR FACILITY. THIS WILL NEED TO BE STARTED AT [place]. LEVAQUIN WAS GIVEN HERE IN ER IV. Departure - Departure Time of Disposition: 22:59 Disposition: DC/Tfer to [facility] 02 Condition: Fair Clinical Impression: Neutropenic fever Anemia Qualifiers: Anemia type: unspecified type Qualified Code(s): D64.9 - Anemia, unspecified - Discharge Information Referrals: PCP,None [Primary Care Provider] - Forms: ED Department Discharge - My Orders Last 24 Hours: My Active Orders 08/24/16 21:50 CULTURE BLOOD [BC] Stat Blood Culture x2 Reflex Set [OM.PC] Stat 08/24/16 21:51 Chest 2V [CR] Stat 08/24/16 22:00 CULTURE BLOOD [BC] Stat 08/24/16 22:56 Peripheral IV Insertion Adult [OM.PC] Urgent 08/24/16 23:37 Levofloxacin/Dextrose 5%-Water [Levaquin in D5W 750 MG/150 ML] 750 mg Premix Bag 1 bag IV ONETIME - Assessment/Plan Last 24 Hours: My Active Orders 08/24/16 21:50 CULTURE BLOOD [BC] Stat Blood Culture x2 Reflex Set [OM.PC] Stat 08/24/16 21:51 Chest 2V [CR] Stat 08/24/16 22:00 CULTURE BLOOD [BC] Stat 08/24/16 22:56 Peripheral IV Insertion Adult [OM.PC] Urgent 08/24/16 23:37 Levofloxacin/Dextrose 5%-Water [Levaquin in D5W 750 MG/150 ML] 750 mg Premix Bag 1 bag IV ONETIME Plan: PLEASE SEE RN NOTE FOR PFSH. This patient is being transferred to [facility]. The patient is being transferred to facility where his oncologist resides. The risks of the transfer are MVC, , cardiac arrest, bleeding out, worsening of fever. The risks of staying in [place] are , worsening of condition, cardiac arrest, not getting blood that is needed, not seeing oncologist specialist, not having a washing done. The benefits of transfer are getting blood that is needed for leukemia patient, oncologist specialist seeing patient, getting washing after blood transfusion, neutropenic fever management, medication administrations not available at our facility. The benefits of staying in [place] close to home.
[2016-08-24 22:25] LABS: CHLORIDE,CL 105 mEq/L (98-106); SODIUM,NA 142 mEq/L (136-145)
[2016-08-24] MEDS ORDERED: Levofloxacin/Dextrose 5%-Water 750 MG in Premix Bag 1 BAG IV ONE (23:37)
== END 2016-08-25 00:15 ==
LOC: CC.ED 21:46
DX: D70.9 Neutropenia, unspecified (principal); R50.81 Fever presenting with conditions classified elsewhere; D64.9 Anemia, unspecified; E78.00 Pure hypercholesterolemia, unspecified; I10 Essential (primary) hypertension; E11.9 Type 2 diabetes mellitus without complications; E66.9 Obesity, unspecified; Z98.890 Other specified postprocedural states; Z87.891 Personal history of nicotine dependence; Z88.2 Allergy status to sulfonamides; Z88.8 Allergy status to other drugs, medicaments and biological substances; Z88.0 Allergy status to penicillin; Z79.899 Other long term (current) drug therapy; Z79.4 Long term (current) use of insulin; Z98.49 Cataract extraction status, unspecified eye; I48.91 Unspecified atrial fibrillation
CPT/HCPCS: 36415; 71020; 80053; 81001; 83605; 85027; 86140; 87040; 87186; 96374; 99284; 99285; J1956

== ENCOUNTER 2016-09-28 19:08 | Emergency (ER) | payer MEDICARE, OTHER ==
--- NOTE | 2016-09-28 19:49 | EDM.PDOC ---
ED HPI GENERAL MEDICAL PROBLEM - General Chief Complaint: Fever Stated Complaint: temp Time Seen by Provider: 09/28/16 19:11 Source of Information: Reports: Patient History Limitations: Reports: No Limitations - History of Present Illness INITIAL COMMENTS - FREE TEXT/NARRATIVE: This patient is a 76 year old male that presents to the ER. Patient has a history of leukemia. The patient is instructed to randomly check his temperature at times to ensure he does not have fevers. Patient reports this evening around 6pm he started having some chills so he took his temperature. Patient reports that his temperature at home was 103.0. Patient reports that his last chemo was about 3 weeks ago. Patient reports that about 3 weeks ago he developed left chest itching with redness around port. Patient reports that about 1 week ago he developed a sore throat for 1 day, then resolved. Patient reports that he has diarrhea, but has for a long time and the workup for that was negative. The patient denies lazcano, dizziness, n, v, d, cp, soa, abd pain, urinary/bowel changes, congestion, drainage, neck pain, neck stiffness. Patient is alert and oriented. Conversing in full and complete sentences without any difficulty. Onset: Today Onset Date: 09/28/16 Onset Time: 18:00 Severity: Moderate Improves with: Reports: None Worsens with: Reports: None Associated Symptoms: Denies: Confusion, Chest Pain, Cough, cough w sputum, Diaphoresis, Fever/Chills, Headaches, Loss of Appetite, Malaise, Nausea/Vomiting , Rash, Seizure, Shortness of Breath, Syncope, Weakness - Related Data Allergies Allergy/AdvReac Type Severity Reaction Status Date / Time meropenem [From Merrem] Allergy Rash Verified 09/28/16 19:14 Penicillins Allergy Hives Verified 09/28/16 19:14 Sulfa (Sulfonamide Allergy Hives Verified 09/28/16 19:14 Antibiotics) Home Meds: Home Meds atorvaSTATin [Lipitor] 10 mg PO DAILY 06/25/15 [History] metFORMIN [Glucophage] 850 mg PO BID 05/02/16 [History] Amiodarone HCl [Amiodarone HCl] 200 mg PO DAILY 06/26/16 [History] Furosemide [Furosemide] 40 mg PO DAILY 06/26/16 [History] Insulin Aspart [NovoLOG] 4 - 15 unit SUBCUT WITHMEALSANDBED 06/26/16 [History] Insulin Glarg,Human.Rec.Analog [LantUS Solostar] 20 unit SUBCUT QAM 06/26/16 [ History] Metoprolol Tartrate [Metoprolol Tartrate] 12.5 mg PO BID 06/26/16 [History] Enoxaparin Sodium 120 mg SUBCUT BID 08/19/16 [History] Potassium Chloride 40 meq PO DAILY 08/19/16 [History] amLODIPine Besylate [Amlodipine Besylate] 10 mg PO DAILY 08/19/16 [History] Magnesium 250 mg PO DAILY 09/28/16 [History] Past Medical History Cardiovascular History: Reports: Afib, Blood Clots/VTE/DVT, High Cholesterol, Hypertension Musculoskeletal History: Reports: Fracture, Osteoarthritis Psychiatric History: Reports: Anxiety Endocrine/Metabolic History: Reports: Diabetes, Type II, Obesity/BMI 30+ Hematologic History: Reports: Anemia, Blood Transfusion(s) Oncologic (Cancer) History: Reports: Leukemia, Other (See Below) Other Oncologic History: ALL - Infectious Disease History Infectious Disease History: Reports: VRE - Past Surgical History HEENT Surgical History: Reports: Cataract Surgery GI Surgical History: Reports: Colonoscopy, Polypectomy Musculoskeletal Surgical History: Reports: ORIF, Other (See Below) Oncologic Surgical History: Reports: Other (See Below) Other Oncologic Surgeries/Procedures: bone marrow biopsy Social & Family History - Family History Family Medical History: Noncontributory Cardiac: Reports: Hypertension - Tobacco Use Smoking Status *Q: Never Smoker Years of Tobacco use: 50 Used Tobacco, but Quit: Yes Month Tobacco Last Used: 2013 - Caffeine Use Caffeine Use: Reports: None - Recreational Drug Use Recreational Drug Use: No - Living Situation & Occupation Living situation: Reports: , with Family ED ROS GENERAL - Review of Systems Review Of Systems: See Below Constitutional: Reports: Fever, Chills HEENT: Reports: Throat Pain (1 week ago, for the day. ) Respiratory: Reports: No Symptoms Cardiovascular: Reports: No Symptoms Endocrine: Reports: No Symptoms GI/Abdominal: Reports: Diarrhea (for months per patient. chornic, undergone testing prior, unremarkable. ) : Reports: No Symptoms Musculoskeletal: Reports: No Symptoms Skin: Reports: Pruritis (left chest around port) Neurological: Reports: No Symptoms Psychiatric: Reports: No Symptoms Hematologic/Lymphatic: Reports: No Symptoms Immunologic: Reports: No Symptoms ED EXAM, GENERAL - Physical Exam Exam: See Below Exam Limited By: No Limitations General Appearance: Alert, WD/WN, No Apparent Distress Eye Exam: Bilateral Eye: Normal Inspection, PERRL Ears: Normal External Exam, Normal Canal, Hearing Grossly Normal, Normal TMs Ear Exam: Bilateral Ear: Auricle Normal, Canal Normal, TM normal Nose: Normal Inspection, Normal Mucosa, No Blood Throat/Mouth: Normal Inspection, Normal Lips, Normal Teeth, Normal Gums, Normal Oropharynx, Normal Voice, No Airway Compromise Head: Atraumatic, Normocephalic Neck: Normal Inspection, Supple, Non-Tender, Full Range of Motion Respiratory/Chest: No Respiratory Distress, Lungs Clear, Normal Breath Sounds, No Accessory Muscle Use Cardiovascular: Normal Peripheral Pulses, Regular Rate, Rhythm, No Edema, No Gallop, No JVD, No Murmur, No Rub Peripheral Pulses: 2+: Radial (L), Radial (R), Posterior Tibial (L), Posterior Tibial (R) GI/Abdominal: Normal Bowel Sounds, Soft, Non-Tender, No Organomegaly, No Distention, No Abnormal Bruit, No Mass, Pelvis Stable Back Exam: Normal Inspection, Full Range of Motion. No: CVA Tenderness (L), CVA Tenderness (R) Extremities: Normal Inspection, Normal Range of Motion, Non-Tender, No Pedal Edema, Normal Capillary Refill Neurological: Alert, Oriented, Normal Cognition, Normal Gait, No Motor/Sensory Deficits Psychiatric: Normal Affect, Normal Mood Skin Exam: Warm, Dry, Intact, Normal Color, Rash (erythmatous rash left chest upper port area to nipple area. No heat, no open wounds, no swelling around port. Does not appear infectious. ) Lymphatic: No Adenopathy Course - Vital Signs Last Recorded V/S: Last Vital Signs Temp 102.5 F H 09/28/16 19:09 Pulse 70 09/28/16 19:09 Resp 20 09/28/16 19:09 BP 162/79 H 09/28/16 19:09 Pulse Ox 96 09/28/16 19:09 - Orders/Labs/Meds Orders: Active Orders 24 hr Category Date Time Status Chest 2V [CR] Stat Exams 09/28/16 19:13 Taken CULTURE BLOOD [BC] Stat Lab 09/28/16 19:25 Received CULTURE BLOOD [BC] Stat Lab 09/28/16 19:30 Received CULTURE URINE [RM] Stat Lab 09/28/16 20:20 Received TYPE AND SCREEN [BBK] Stat Lab 09/28/16 19:13 Ordered Levofloxacin/Dextrose 5%-Water [Levaquin in D5W 750 MG/ Med 09/28/16 20:52 Active 150 ML] 750 mg Premix Bag 1 bag IV ONETIME Sodium Chloride 0.9% [Normal Saline] 1,000 ml Med 09/28/16 20:58 Ordered IV .BOLUS Blood Culture x2 Reflex Set [OM.PC] Stat Oth 09/28/16 19:13 Ordered Medication Orders Levofloxacin/Dextrose 750 mg/ (Premix) 150 mls @ 100 mls/hr IV ONETIME ONE Stop: 09/28/16 22:21 Last Admin: 09/28/16 20:56 Dose: 100 mls/hr Sodium Chloride (Normal Saline) 1,000 mls @ 1,000 mls/hr IV .BOLUS ONE Stop: 09/28/16 21:57 Labs: Laboratory Tests 09/28/16 09/28/16 09/28/16 Range/Units 19:25 19:25 19:25 WBC 8.4 (5.0-10.0) 10^3/uL RBC 2.92 L (4.50-6.00) 10^6/uL Hgb 9.7 L (14.0-18.0) g/dL Hct 30.5 L (40.0-54.0) % MCV 104.5 H (82.0-94.0) fL MCH 33.2 H (27.0-32.0) pg MCHC 31.8 L (33.0-38.0) g/dL RDW Coeff of Thu 18.0 H (11.0-15.0) % Plt Count 203 (150-400) 10^3/uL Neut % (Auto) 72.8 (35-85) % Lymph % (Auto) 15.5 (10-55) % [place] % (Auto) 9.1 (0-16) % Eos % (Auto) 1.2 (0-5) % Baso % (Auto) 1.4 (0-3) % Neut # (Auto) 6.14 (1.80-7.00) 10^3/uL Lymph # (Auto) 1.31 (1.00-4.80) 10^3/uL [place] # (Auto) 0.77 (0.00-0.80) 10^3/uL Eos # (Auto) 0.10 (0.00-0.45) 10^3/uL Baso # (Auto) 0.12 10^3/uL ESR 61 H (0-15) mm/hr Sodium 139 (136-145) mEq/L Potassium 4.6 (3.5-5.0) mEq/L Chloride 104 (98-106) mEq/L Carbon Dioxide 23 (21-32) mmol/L BUN 16 (7-18) mg/dL Creatinine 1.1 (0.7-1.3) mg/dL Est Cr Clr Drug Dosing TNP Estimated GFR (MDRD) > 60 (>=60) mL/min Glucose 184 H (75-99) mg/dL Lactic Acid 1.7 (0.4-2.0) mmol/L Calcium 9.0 (8.4-10.1) mg/dL Total Bilirubin 0.4 (0.0-1.0) mg/dL AST 15 (15-37) U/L ALT 30 (12-78) U/L Alkaline Phosphatase 109 (46-116) U/L C-Reactive Protein 2.9 H (0.2-0.8) mg/dL Total Protein 6.5 (6.4-8.2) g/dL Albumin 3.4 (3.4-5.0) g/dL Urine Color (YELLOW) Urine Appearance (CLEAR) Urine pH (4.5-8.0) Ur Specific [place] (1.003-1.020) Urine Protein (NEGATIVE) mg/dL Urine Glucose (UA) (NEGATIVE) mg/dL Urine Ketones (NEGATIVE) mg/dL Urine Occult Blood (NEGATIVE) Urine Nitrite (NEGATIVE) Urine Bilirubin (NEGATIVE) Urine Urobilinogen (0.2-1.0) EU/dL Ur Leukocyte Esterase (NEGATIVE) Urine RBC (0-5) /HPF Urine WBC (0-5) /HPF Urine Bacteria (NOT SEEN) /HPF 09/28/16 Range/Units 20:10 WBC (5.0-10.0) 10^3/uL RBC (4.50-6.00) 10^6/uL Hgb (14.0-18.0) g/dL Hct (40.0-54.0) % MCV (82.0-94.0) fL MCH (27.0-32.0) pg MCHC (33.0-38.0) g/dL RDW Coeff of Thu (11.0-15.0) % Plt Count (150-400) 10^3/uL Neut % (Auto) (35-85) % Lymph % (Auto) (10-55) % [place] % (Auto) (0-16) % Eos % (Auto) (0-5) % Baso % (Auto) (0-3) % Neut # (Auto) (1.80-7.00) 10^3/uL Lymph # (Auto) (1.00-4.80) 10^3/uL [place] # (Auto) (0.00-0.80) 10^3/uL Eos # (Auto) (0.00-0.45) 10^3/uL Baso # (Auto) 10^3/uL ESR (0-15) mm/hr Sodium (136-145) mEq/L Potassium (3.5-5.0) mEq/L Chloride (98-106) mEq/L Carbon Dioxide (21-32) mmol/L BUN (7-18) mg/dL Creatinine (0.7-1.3) mg/dL Est Cr Clr Drug Dosing Estimated GFR (MDRD) (>=60) mL/min Glucose (75-99) mg/dL Lactic Acid (0.4-2.0) mmol/L Calcium (8.4-10.1) mg/dL Total Bilirubin (0.0-1.0) mg/dL AST (15-37) U/L ALT (12-78) U/L Alkaline Phosphatase (46-116) U/L C-Reactive Protein (0.2-0.8) mg/dL Total Protein (6.4-8.2) g/dL Albumin (3.4-5.0) g/dL Urine Color Yellow (YELLOW) Urine Appearance Clear (CLEAR) Urine pH 5.5 (4.5-8.0) Ur Specific [place] 1.015 (1.003-1.020) Urine Protein 100 H (NEGATIVE) mg/dL Urine Glucose (UA) Negative (NEGATIVE) mg/dL Urine Ketones Negative (NEGATIVE) mg/dL Urine Occult Blood Negative (NEGATIVE) Urine Nitrite Negative (NEGATIVE) Urine Bilirubin Negative (NEGATIVE) Urine Urobilinogen 0.2 (0.2-1.0) EU/dL Ur Leukocyte Esterase Trace H (NEGATIVE) Urine RBC Not seen (0-5) /HPF Urine WBC 5-10 H (0-5) /HPF Urine Bacteria Few H (NOT SEEN) /HPF Meds: Medications Generic Name Dose Route Start Last Admin Trade Name Freq PRN Reason Stop Dose Admin Levofloxacin/Dextrose 750 mg/ 150 mls @ 100 mls/hr 09/28/16 20:52 09/28/16 20 :56 Premix IV 09/28/16 22:21 100 mls/hr ONETIME ONE Administration Sodium Chloride 1,000 mls @ 1,000 mls/hr 09/28/16 20:58 Normal Saline IV 09/28/16 21:57 .BOLUS ONE - Radiology Interpretation Free Text/Narrative:: CXR; No infiltrates, no cardiomegaly, no pulmonary edema. - Re-Assessments/Exams Free Text/Narrative Re-Assessment/Exam: 09/28/16 20:[address] Sanchez oncologist at [facility] about this patient. She would like me to give the patient Levaquin in ER and discharge the patient on Levaquin home for 7 days. Patient is to see his oncologist on . Departure - Departure Time of Disposition: 20:56 Disposition: Home, Self-Care 01 Condition: Fair Clinical Impression: UTI (urinary tract infection) Qualifiers: Urinary tract infection type: urethritis Qualified Code(s): N34.2 - Other urethritis - Discharge Information Instructions: Fever, Adult, [id number], Urinary Tract Infection, Adult Referrals: Dariel Amato MD [Primary Care Provider] - Forms: ED Department Discharge Additional Instructions: Followup with your oncologist as scheduled Followup with your primary care provider Return to the ER for worsening of condition or any emergent concerns Increase fluids Tylenol for fever Levaquin 750mg 1 pill once a day for 7 days #7 no refill - My Orders Last 24 Hours: My Active Orders 09/28/16 19:13 Chest 2V [CR] Stat TYPE AND SCREEN [BBK] Stat Blood Culture x2 Reflex Set [OM.PC] Stat 09/28/16 19:25 CULTURE BLOOD [BC] Stat 09/28/16 19:30 CULTURE BLOOD [BC] Stat 09/28/16 20:20 CULTURE URINE [RM] Stat 09/28/16 20:52 Levofloxacin/Dextrose 5%-Water [Levaquin in D5W 750 MG/150 ML] 750 mg Premix Bag 1 bag IV ONETIME 09/28/16 20:58 Sodium Chloride 0.9% [Normal Saline] 1,000 ml IV .BOLUS - Assessment/Plan Last 24 Hours: My Active Orders 09/28/16 19:13 Chest 2V [CR] Stat TYPE AND SCREEN [BBK] Stat Blood Culture x2 Reflex Set [OM.PC] Stat 09/28/16 19:25 CULTURE BLOOD [BC] Stat 09/28/16 19:30 CULTURE BLOOD [BC] Stat 09/28/16 20:20 CULTURE URINE [RM] Stat 09/28/16 20:52 Levofloxacin/Dextrose 5%-Water [Levaquin in D5W 750 MG/150 ML] 750 mg Premix Bag 1 bag IV ONETIME 09/28/16 20:58 Sodium Chloride 0.9% [Normal Saline] 1,000 ml IV .BOLUS
[2016-09-28 19:52] LABS: CHLORIDE,CL 104 mEq/L (98-106); SODIUM,NA 139 mEq/L (136-145)
[2016-09-28] MEDS ORDERED: Levofloxacin/Dextrose 5%-Water 750 MG in Premix Bag 1 BAG IV ONE (20:52)
[2016-09-28] MEDS ORDERED: Sodium Chloride 0.9% 1,000 ML IV ONE (20:58)
[2016-09-28 23:30] VITALS: BP 162/75
[2016-09-28] MEDS ORDERED: Acetaminophen 500 MG Tab PO ONE (23:36)
== END 2016-09-28 23:45 | disposition home or self-care (01) ==
LOC: CC.ED 19:08
DX: N34.2 Other urethritis (principal); I48.91 Unspecified atrial fibrillation; E78.00 Pure hypercholesterolemia, unspecified; I10 Essential (primary) hypertension; M19.90 Unspecified osteoarthritis, unspecified site; E11.9 Type 2 diabetes mellitus without complications; E66.9 Obesity, unspecified; Z85.6 Personal history of leukemia; Z88.0 Allergy status to penicillin; Z88.2 Allergy status to sulfonamides; Z88.1 Allergy status to other antibiotic agents; Z79.84 Long term (current) use of oral hypoglycemic drugs; Z79.4 Long term (current) use of insulin; Z98.49 Cataract extraction status, unspecified eye; Z68.33 Body mass index [BMI] 33.0-33.9, adult; Z86.2 Personal history of diseases of the blood and blood-forming organs and certain disorders involving the immune mechanism
CPT/HCPCS: 36415; 71020; 80053; 81001; 83605; 85025; 85651; 86140; 87040; 87086; 87088; 87186; 87430; 96361; 96365; 99284; A9270; J1956; J7030

== ENCOUNTER 2017-01-19 08:08 | Inpatient (IN) | payer MEDICARE, OTHER ==
[~2017-01-19 08:08] MED LIST: Azithromycin 500 MG in Sodium Chloride 0.9% 250 ML IV SCH; ISAVUCONAZONIUM SULFATE PO SCH; cefTRIAXone 1 GM Vial IVPUSH SCH
[2017-01-19 08:26] LABS: O2 DELIVERY DEVICE NON REBR MASK
[2017-01-19] MEDS ORDERED: LORazepam 2 MG/ML Syringe ONE ×2 (08:27→10:54)
[2017-01-19 08:29] LABS: O2 SATURATION ARTERIAL 75 % (95-98); PCO2 ARTERIAL 82 mm/Hg0 (35-45); PO2 ARTERIAL 45 mm/Hg (80-100)
[2017-01-19 08:30] LABS: BICARBONATE,ARTERIAL 45.5 mm/L (22.0-26.0); O2 FLOW RATE 15
[2017-01-19] MEDS ORDERED: LORazepam 2 MG/ML Syringe IVPUSH ONE (08:40)
[2017-01-19 08:45] LABS: CHLORIDE,CL 97 mEq/L (98-106); SODIUM,NA 142 mEq/L (136-145)
--- NOTE | 2017-01-19 08:49 | EDM.PDOC ---
ED HPI GENERAL MEDICAL PROBLEM - General Chief Complaint: Respiratory Problem Stated Complaint: sob, low )2 SAT Time Seen by Provider: 01/19/17 08:20 Source of Information: Reports: Patient, EMS, Family History Limitations: Reports: Respiratory Distress - History of Present Illness INITIAL COMMENTS - FREE TEXT/NARRATIVE: Pt has been at [facility] for 45 days and came home last week and is scheduled to go back next Thursday. Has been having more respiratory distress and is having increase in edema. He was struggling with breathing at home and is on home oxygen. called ambulance this morning as he was struggling. When arriving here he was sating in the low 80's on oxygen. He is gasping at times. Did get treatment enroute which he states hasn't helped at all. He states that he doesn't want to be transferred out. He wants to stay here and go on hospice. He would like to have antibiotics if it will make his breathing better. notes that he has been retaining fluid and his edema has become worse. Unable to lay down without getting more SOB. Onset: Gradual Duration: Getting Worse Associated Symptoms: Reports: Shortness of Breath. Denies: Chest Pain, Cough, cough w sputum, Nausea/Vomiting - Related Data Allergies Allergy/AdvReac Type Severity Reaction Status Date / Time meropenem [From Merrem] Allergy Rash Verified 01/19/17 09:06 Penicillins Allergy Hives Verified 01/19/17 09:06 Sulfa (Sulfonamide Allergy Hives Verified 01/19/17 09:06 Antibiotics) Home Meds: Home Meds metFORMIN [Glucophage] 850 mg PO BID 05/02/16 [History] Insulin Aspart [NovoLOG] 4 - 15 unit SUBCUT WITHMEALSANDBED 06/26/16 [History] Insulin Glarg,Human.Rec.Analog [LantUS Solostar] 20 unit SUBCUT QAM 06/26/16 [ History] Metoprolol Tartrate [Metoprolol Tartrate] 25 mg PO BID 06/26/16 [History] Potassium Chloride 20 meq PO DAILY 08/19/16 [History] Acyclovir [Acyclovir] 1 tab PO BID 01/19/17 [History] Calcium Acetate [PhosLo] 2 tab PO BID 01/19/17 [History] Doxycycline [Vibramycin] 100 mg PO DAILY 01/19/17 [History] Isavuconazonium Sulfate [Cresemba] 2 tab PO DAILY 01/19/17 [History] Rosuvastatin Calcium [Rosuvastatin Calcium] 10 mg PO BEDTIME 01/19/17 [History] Sennosides [Senokot] 2 tab PO DAILY PRN 01/19/17 [History] Torsemide [Demadex] 20 mg PO BID 01/19/17 [History] Ursodiol [Ursodiol] 500 mg PO BID 01/19/17 [History] amLODIPine Besylate [Amlodipine Besylate] 10 mg PO DAILY 01/19/17 [History] traZODone HCl [Trazodone HCl] 100 mg PO BEDTIME 01/19/17 [History] Past Medical History Cardiovascular History: Reports: Afib, Blood Clots/VTE/DVT, High Cholesterol, Hypertension Musculoskeletal History: Reports: Fracture, Osteoarthritis Psychiatric History: Reports: Anxiety Endocrine/Metabolic History: Reports: Diabetes, Type II, Obesity/BMI 30+ Hematologic History: Reports: Anemia, Blood Transfusion(s) Oncologic (Cancer) History: Reports: Leukemia, Other (See Below) Other Oncologic History: ALL - Infectious Disease History Infectious Disease History: Reports: VRE - Past Surgical History HEENT Surgical History: Reports: Cataract Surgery GI Surgical History: Reports: Colonoscopy, Polypectomy Musculoskeletal Surgical History: Reports: ORIF, Other (See Below) Oncologic Surgical History: Reports: Other (See Below) Other Oncologic Surgeries/Procedures: bone marrow biopsy Social & Family History - Family History Family Medical History: Noncontributory Cardiac: Reports: Hypertension - Tobacco Use Smoking Status *Q: Never Smoker Years of Tobacco use: 50 Used Tobacco, but Quit: Yes Month Tobacco Last Used: 2013 - Caffeine Use Caffeine Use: Reports: None - Recreational Drug Use Recreational Drug Use: No - Living Situation & Occupation Living situation: Reports: , with Family ED ROS GENERAL - Review of Systems Review Of Systems: See Below Constitutional: Reports: Weakness. Denies: Fever, Chills HEENT: Reports: No Symptoms Respiratory: Reports: Shortness of Breath Cardiovascular: Reports: Edema. Denies: Chest Pain GI/Abdominal: Denies: Abdominal Pain : Reports: No Symptoms Musculoskeletal: Reports: No Symptoms Skin: Reports: Change in Color Neurological: Reports: Weakness. Denies: Headache, Numbness, Syncope Psychiatric: Reports: Anxiety ED EXAM, GENERAL - Physical Exam Exam: See Below Exam Limited By: Respiratory Distress General Appearance: Alert, Anxious Ears: Normal External Exam, Normal Canal Nose: Normal Inspection Throat/Mouth: Normal Inspection, Normal Oropharynx Head: Atraumatic Neck: Normal Inspection, Lymphadenopathy (L), Lymphadenopathy (R) Respiratory/Chest: Other (severe respiratory distress. Lung sounds are decreased and very poor bilaterally. Wheezing and rhonchi noted.) Cardiovascular: Regular Rate, Rhythm GI/Abdominal: Normal Bowel Sounds, Distended Extremities: Pedal Edema (bilaterally that is 2-3+) Neurological: Alert, Oriented Psychiatric: Anxious Skin Exam: Warm, Dry Course - Vital Signs Last Recorded V/S: Last Vital Signs Temp 97.7 F 01/19/17 09:11 Pulse 83 01/19/17 09:11 Resp 28 H 01/19/17 09:11 BP 131/51 L 01/19/17 09:11 Pulse Ox 82 L 01/19/17 12:00 - Orders/Labs/Meds Orders: Active Orders 24 hr Category Date Time Status Patient Status [ADT] Routine ADT 01/19/17 10:25 Active Blood Glucose Check, Bedside [RC] 0730,1130,1700,2100 Care 01/19/17 10:25 Active Intake and Output [RC] 0600,1800 Care 01/19/17 10:25 Active Oxygen Therapy [RC] 2355 Care 01/19/17 10:25 Active Pulse Oximetry [RC] .PRN Care 01/19/17 10:25 Active RT Aerosol Therapy [RC] 0800,1200,1600,2000 Care 01/19/17 10:25 Active VTE/DVT Education [RC] PER UNIT ROUTINE Care 01/19/17 10:25 Active Vital Signs [RC] 0000,0400,0800,1200,1600,2000 Care 01/19/17 10:25 Active Consult to Hospice [CONS] Routine Cons 01/19/17 10:25 Active Regular Diet [DIET] Diet 01/19/17 Lunch Active Chest 1V Frontal [CR] Stat Exams 01/19/17 08:20 Taken BASIC METABOLIC PANEL,BMP [CHEM] AM Lab 01/20/17 05:11 Ordered CBC WITH AUTO DIFF [HEME] AM Lab 01/20/17 05:11 Ordered Acetaminophen [Tylenol] Med 01/19/17 10:25 Active 650 mg PO Q4H PRN Sodium Chloride 0.9% [Saline Flush] Med 01/19/17 10:25 Active 10 ml FLUSH ASDIRECTED PRN Peripheral IV Insertion Adult [OM.PC] Routine Oth 01/19/17 10:25 Ordered Resuscitation Status Routine Resus Stat 01/19/17 10:10 Ordered Medication Orders Acetaminophen (Tylenol) 650 mg PO Q4H PRN PRN Reason: Pain (Mild 1-3)/fever Fentanyl (Sublimaze) 12.5 mcg IVPUSH Q1H PRN PRN Reason: Anxiety/SOB Fentanyl (Sublimaze) 12.5 mcg IVPUSH BID [facility] Lorazepam (Ativan) 1 mg IVPUSH Q1H PRN PRN Reason: Anxiety Sodium Chloride (Saline Flush) 10 ml FLUSH ASDIRECTED PRN PRN Reason: Keep Vein Open Labs: Laboratory Tests 01/19/17 01/19/17 01/19/17 Range/Units 08:20 08:20 08:20 WBC 1.5 L* (5.0-10.0) 10^3/uL RBC 2.25 L (4.50-6.00) 10^6/uL Hgb 7.0 L* (14.0-18.0) g/dL Hct 23.8 L (40.0-54.0) % MCV 105.8 H (82.0-94.0) fL MCH 31.1 (27.0-32.0) pg MCHC 29.4 L (33.0-38.0) g/dL RDW Coeff of Thu 20.5 H (11.0-15.0) % Plt Count 16 L* (150-400) 10^3/uL Add Manual Diff Yes Neutrophils % (Manual) 4 L (35-85) % Band Neutrophils % 32 H (0-5) % Lymphocytes % (Manual) 40 (21-55) % Monocytes % (Manual) 12 (2-12) % Metamyelocytes % 4 % Absolute Neutrophils 0.54 L (1.80-7.00) 10^3/uL Lymphocytes # (Manual) 0.72 L (1.00-4.80) 10^3/uL Monocytes # (Manual) 0.18 (0.00-0.80) 10^3/uL ABG pH 7.35 (7.35-7.45) ABG pCO2 82 H (35-45) mm/Hg0 ABG pO2 45 L (80-100) mm/Hg ABG HCO3 45.5 H (22.0-26.0) mm/L ABG O2 Saturation 75 L (95-98) % ABG Base Excess 20.0 H (-2.0-3.0) O2 Delivery Device Non rebr mask Oxygen Flow Rate 15 Sodium 142 (136-145) mEq/L Potassium 3.7 D (3.5-5.0) mEq/L Chloride 97 L (98-106) mEq/L Carbon Dioxide 43 H* D (21-32) mmol/L BUN 17 (7-18) mg/dL Creatinine 0.9 (0.7-1.3) mg/dL Est Cr Clr Drug Dosing 73.23 mL/min Estimated GFR (MDRD) > 60 (>=60) mL/min Glucose 178 H (75-99) mg/dL Calcium 7.9 L (8.4-10.1) mg/dL Total Bilirubin 3.7 H (0.0-1.0) mg/dL AST 97 H (15-37) U/L ALT 39 (12-78) U/L Alkaline Phosphatase 414 H (46-116) U/L Lactate Dehydrogenase 780 H (100-190) U/L Creatine Kinase 21 L (35-232) U/L Troponin I < 0.017 (0.00-0.06) ng/mL C-Reactive Protein 22.1 H (0.2-0.8) mg/dL NT-Pro-B Natriuret Pep 1129 H (0-1000) pg/mL Total Protein 5.4 L (6.4-8.2) g/dL Albumin 2.0 L (3.4-5.0) g/dL Meds: Medications Generic Name Dose Route Start Last Admin Trade Name Freq PRN Reason Stop Dose Admin Acetaminophen 650 mg 01/19/17 10:25 Tylenol PO Q4H PRN Pain (Mild 1-3)/fever Fentanyl 12.5 mcg 01/19/17 11:36 Sublimaze IVPUSH Q1H PRN Anxiety/SOB Fentanyl 12.5 mcg 01/19/17 20:00 Sublimaze IVPUSH BID [facility]ETH Lorazepam 1 mg 01/19/17 13:19 Ativan IVPUSH Q1H PRN Anxiety Sodium Chloride 10 ml 01/19/17 10:25 Saline Flush FLUSH ASDIRECTED PRN Keep Vein Open Discontinued Medications Generic Name Dose Route Start Last Admin Trade Name Stevie PRN Reason Stop Dose Admin Acyclovir 400 mg 01/19/17 11:30 01/19/17 12:20 Zovirax PO Not Given BID [facility] Albuterol/Ipratropium 3 ml 01/19/17 09:00 01/19/17 12:20 Duoneb 3.0-0.5 Mg/3 Ml NEB Not Given QIDRT [facility] Amlodipine Besylate 10 mg 01/19/17 11:45 01/19/17 12:20 Norvasc PO Not Given DAILY [facility] Ceftriaxone Sodium 1 gm 01/19/17 08:00 01/19/17 10:49 Rocephin IVPUSH 1 gm Q24H [facility] Administration Doxycycline Monohydrate 100 mg 01/19/17 11:30 01/19/17 12:20 Vibramycin PO Not Given DAILY [facility] Dextrose/Sodium Chloride 1,000 mls @ 75 mls/hr 01/19/17 10:25 Dextrose 5%-1/2 Ns IV ASDIRECTED [facility] Azithromycin 500 mg/ Sodium 250 mls @ 250 mls/hr 01/19/17 08:00 01/19/17 11: 27 Chloride IV 250 mls/hr Q24H [facility] Administration Levofloxacin/Dextrose 750 mg/ 150 mls @ 100 mls/hr 01/19/17 12:00 01/19/17 13 :51 Premix IV Not Given Q24H [facility] Vancomycin HCl 1.25 gm/ Sodium 250 mls @ 167 mls/hr 01/20/17 08:00 Chloride IV Q12H [facility] Vancomycin HCl 1.25 gm/ Sodium 250 mls @ 167 mls/hr 01/19/17 13:00 01/19/17 13:51 Chloride IV 01/19/17 22:59 Not Given 1300,2200 [facility] Insulin Detemir 20 unit 01/19/17 12:00 01/19/17 12:21 Levemir SUBCUT Not Given QAM [facility] Lorazepam Confirm 01/19/17 08:27 01/19/17 10:44 Ativan Administered 01/19/17 08:28 Not Given Dose 2 mg .ROUTE .STK-MED ONE Lorazepam 1 mg 01/19/17 08:40 01/19/17 10:44 Ativan IVPUSH 01/19/17 08:41 Not Given ONETIME ONE Lorazepam 1 mg 01/19/17 10:25 01/19/17 10:42 Ativan IVPUSH 1 mg Q6H PRN Administration Anxiety Lorazepam Confirm 01/19/17 10:54 01/19/17 10:42 Ativan Administered 01/19/17 10:55 Not Given Dose 2 mg .ROUTE .STK-MED ONE Metformin HCl 850 mg 01/19/17 11:30 01/19/17 12:20 Glucophage PO Not Given BIDMEALS [facility] Metoprolol Tartrate 25 mg 01/19/17 11:30 01/19/17 12:20 Lopressor PO Not Given BID [facility] Morphine Sulfate Confirm 01/19/17 11:17 01/19/17 11:07 Morphine Administered 01/19/17 11:18 1 mg Dose Administration 2 mg .ROUTE .STK-MED ONE Ptom ( 2 tab 01/19/17 08:00 01/19/17 12:19 Isavuconazonium PO Not Given Sulfate [Cresemba] 2 DAILY [facility] Tab) Ptom [Ursodiol] 500 500 mg 01/19/17 17:30 Mg) PO BIDMEALS [facility] Potassium Chloride 20 meq 01/19/17 11:30 01/19/17 12:20 Klor-Con 10 PO Not Given DAILY [facility] Senna 8.6 mg 01/19/17 10:25 Senna PO DAILY PRN Constipation Torsemide 20 mg 01/19/17 16:00 Demadex PO BIDDIURETIC [facility] Trazodone HCl 100 mg 01/19/17 20:00 Trazodone PO BEDTIME [facility] - Re-Assessments/Exams Free Text/Narrative Re-Assessment/Exam: 01/19/17 0830- Discussed with and pt the seriousness of his condition. He does not want to be transferred to [place] or [facility]. "I want to stay here" "I want to go on hospice". "I want to go on antibiotics if they will help my breathing" I can't get my breathe. "I'm ready to stop" is in agreement with this and wishes for hospice also. Free Text/Narrative Re-Assessment/Exam: 01/19/17 1300- Discussed with Dr. Amato this pt and condition and he did suggest using vanco and levaquin if he wants to continue antibiotics. Agrees with hospice care for him. He will be admitted acute care to Dr. Amato for palliative care and will consult hospice. Pt and voice understanding. Will medicate to help decrease his anxiety and to help his respiratory status. They fabrice decide when daughter arrives if we continue antibiotics or note. Departure - Departure Time of Disposition: 08:45 Disposition: Admitted As Inpatient 67 Clinical Impression: ALL (acute lymphocytic leukemia) Qualifiers: Leukemia Active/Remission status: without remission Qualified Code(s): C91.00 - Acute lymphoblastic leukemia not having achieved remission Respiratory failure Qualifiers: Chronicity: acute Respiratory failure complication: hypoxia and hypercapnia Qualified Code(s): J96.01 - Acute respiratory failure with hypoxia; J96.02 - Acute respiratory failure with hypercapnia; J96.02 - Acute respiratory failure with hypercapnia; J96.02 - Acute respiratory failure with hypercapnia - Discharge Information - Problem List & Annotations (1) ALL (acute lymphocytic leukemia) SNOMED Code(s): 88851738 Code(s): C91.00 - ACUTE LYMPHOBLASTIC LEUKEMIA NOT HAVING ACHIEVED REMISSION Status: Acute Priority: High Current Visit: Yes Qualifiers: Leukemia Active/Remission status: without remission Qualified Code(s): C91.00 - Acute lymphoblastic leukemia not having achieved remission (2) Respiratory failure SNOMED Code(s): 151684829 Code(s): J96.90 - RESPIRATORY FAILURE, UNSP, UNSP W HYPOXIA OR HYPERCAPNIA Status: Acute Current Visit: Yes Qualifiers: Chronicity: acute Respiratory failure complication: hypoxia and hypercapnia Qualified Code(s): J96.01 - Acute respiratory failure with hypoxia ; J96.02 - Acute respiratory failure with hypercapnia; J96.02 - Acute respiratory failure with hypercapnia; J96.02 - Acute respiratory failure with hypercapnia (3) Palliative care status SNOMED Code(s): 327890868 Code(s): Z51.5 - ENCOUNTER FOR PALLIATIVE CARE Status: Acute Priority: High Current Visit: Yes - Problem List Review Problem List Initiated/Reviewed/Updated: Yes - My Orders Last 24 Hours: My Active Orders 01/19/17 08:20 Chest 1V Frontal [CR] Stat 01/19/17 10:10 Resuscitation Status Routine 01/19/17 10:25 Patient Status [ADT] Routine Blood Glucose Check, Bedside [RC] 0730,1130,1700,2100 Intake and Output [RC] 0600,1800 Oxygen Therapy [RC] 2355 Pulse Oximetry [RC] .PRN RT Aerosol Therapy [RC] 0800,1200,1600,2000 VTE/DVT Education [RC] PER UNIT ROUTINE Vital Signs [RC] 0000,0400,0800,1200,1600,2000 Consult to Hospice [CONS] Routine Acetaminophen [Tylenol] 650 mg PO Q4H PRN Sodium Chloride 0.9% [Saline Flush] 10 ml FLUSH ASDIRECTED PRN Peripheral IV Insertion Adult [OM.PC] Routine 01/19/17 Lunch Regular Diet [DIET] 01/20/17 05:11 BASIC METABOLIC PANEL,BMP [CHEM] AM CBC WITH AUTO DIFF [HEME] AM - Assessment/Plan Admission H&P: Please use this note as an admission H&P Last 24 Hours: My Active Orders 01/19/17 08:20 Chest 1V Frontal [CR] Stat 01/19/17 10:10 Resuscitation Status Routine 01/19/17 10:25 Patient Status [ADT] Routine Blood Glucose Check, Bedside [RC] 0730,1130,1700,2100 Intake and Output [RC] 0600,1800 Oxygen Therapy [RC] 2355 Pulse Oximetry [RC] .PRN RT Aerosol Therapy [RC] 0800,1200,1600,2000 VTE/DVT Education [RC] PER UNIT ROUTINE Vital Signs [RC] 0000,0400,0800,1200,1600,2000 Consult to Hospice [CONS] Routine Acetaminophen [Tylenol] 650 mg PO Q4H PRN Sodium Chloride 0.9% [Saline Flush] 10 ml FLUSH ASDIRECTED PRN Peripheral IV Insertion Adult [OM.PC] Routine 01/19/17 Lunch Regular Diet [DIET] 01/20/17 05:11 BASIC METABOLIC PANEL,BMP [CHEM] AM CBC WITH AUTO DIFF [HEME] AM
[2017-01-19 10:10] VITALS: BP 131/51
[2017-01-19] MEDS ORDERED: LORazepam 2 MG/ML Syringe IVPUSH PRN ×2 (10:25→13:19)
[2017-01-19] MEDS ORDERED: Dextrose 5%-0.45% NaCl 1,000 ML IV SCH (10:25)
[2017-01-19] MEDS ORDERED: Sennosides 8.6 MG Tab PO PRN (10:25)
[2017-01-19] MEDS ORDERED: Acetaminophen 325 MG Tab PO PRN (10:25)
[2017-01-19] MEDS ORDERED: Sodium Chloride 0.9% 10 ML Syringe FLUSH PRN (10:25)
[2017-01-19] MEDS ORDERED: Morphine 2 MG/ML Syringe IVPUSH PRN (10:25)
[2017-01-19] MEDS ORDERED: Azithromycin 500 MG in Sodium Chloride 0.9% 250 ML IV SCH (10:30)
[2017-01-19] MEDS: Albuterol/Ipratropium 3.0-0.5 MG/3 ML Neb Soln NEB SCH ×2 (10:51→12:20)
[2017-01-19] MEDS ORDERED: Morphine 2 MG/ML Syringe ONE (11:17)
[2017-01-19] MEDS ORDERED: Metoprolol Tartrate 25 MG Tab PO SCH (11:30)
[2017-01-19] MEDS ORDERED: Doxycycline 100 MG Tab PO SCH (11:30)
[2017-01-19] MEDS ORDERED: Acyclovir 200 MG Cap PO SCH (11:30)
[2017-01-19] MEDS ORDERED: Potassium Chloride 10 MEQ Tab.ER PO SCH (11:30)
[2017-01-19] MEDS ORDERED: fentaNYL 100 MCG/2 ML SDV IVPUSH PRN (11:36)
[2017-01-19] MEDS ORDERED: amLODIPine 10 MG Tab PO SCH (11:45)
[2017-01-19] MEDS ORDERED: Insulin Detemir 100 Units/ML 3 ML Pen SUBCUT SCH (12:00)
[2017-01-19] MEDS ORDERED: Enoxaparin 40 MG/0.4 ML Syringe SUBCUT SCH (12:00)
[2017-01-19] MEDS ORDERED: Levofloxacin/Dextrose 5%-Water 750 MG in Premix Bag 1 BAG IV SCH (12:00)
[2017-01-19] MEDS ORDERED: Torsemide 20 MG Tab PO SCH (16:00)
[2017-01-19] MEDS ORDERED: URSODIOL 500 MG PO SCH (17:30)
[2017-01-19] MEDS ORDERED: traZODone 50 MG Tab PO SCH (20:00)
[2017-01-19] MEDS ORDERED: fentaNYL 100 MCG/2 ML SDV IVPUSH SCH (20:00)
--- NOTE | 2017-01-20 07:46 | DISCH ---
DATE OF : 01/19/2017. ADMISSION DIAGNOSES: 1. Pneumonia with respiratory failure. 2. Bilateral pleural effusions. 3. Acute lymphoblastic leukemia. DISCHARGE DIAGNOSIS: 1. PNEUMONIA WITH RESPIRATORY FAILURE. 2. BILATERAL PLEURAL EFFUSIONS. 3. ACUTE LYMPHOBLASTIC LEUKEMIA. HISTORY: The patient is a 76-year-old male who had been battling acute lymphocytic leukemia, had spent recent 45 days at [facility] for attempted chemotherapy and subsequent complications. He has had persistent bilateral pleural effusions with chest tube drainage and a drain left in his chest. He presented to our facility with marked weakness, lethargy, and shortness of breath. X-ray confirmed a large consolidating pneumonia on the right side. He had made it very clear at the time of his admission that he did not want anything aggressive done other than antibiotics. I did talk about hospice as family was present with him and ultimately the decision was made to discontinue all cares as he did not want any further aggressive treatments, transfer, etc. HOSPITAL COURSE: The patient was admitted, kept on oxygen for comfort. Pain medications in the form of morphine for pain and agitation. He peacefully with family at his bedside shortly after his admission and there were no complications. Body was handled via Home per family's wishes and family was appreciative of cares. JOHN/OSCAR /[id number]
== END 2017-01-19 15:35 | disposition expired | DRG 189 ==
LOC: CC.ED 08:08 → UNDOADMIN 09:00 → CC.MS 09:00
PROVIDERS: ADMIT Physician Assistant Medical; ATTEND Family Medicine
DX: J96.01 Acute respiratory failure with hypoxia (principal); J18.9 Pneumonia, unspecified organism; C91.00 Acute lymphoblastic leukemia not having achieved remission; J96.02 Acute respiratory failure with hypercapnia; Z51.5 Encounter for palliative care; I48.91 Unspecified atrial fibrillation; Z86.718 Personal history of other venous thrombosis and embolism; E78.00 Pure hypercholesterolemia, unspecified; I10 Essential (primary) hypertension; M19.90 Unspecified osteoarthritis, unspecified site; F41.9 Anxiety disorder, unspecified; E11.9 Type 2 diabetes mellitus without complications; E66.9 Obesity, unspecified; Z68.30 Body mass index [BMI] 30.0-30.9, adult; D64.9 Anemia, unspecified; Z88.0 Allergy status to penicillin; Z88.2 Allergy status to sulfonamides; Z88.8 Allergy status to other drugs, medicaments and biological substances; Z79.84 Long term (current) use of oral hypoglycemic drugs; Z79.4 Long term (current) use of insulin; Z99.81 Dependence on supplemental oxygen; Z79.899 Other long term (current) drug therapy; Z87.891 Personal history of nicotine dependence
CPT/HCPCS: 36415; 36600; 71010; 80053; 82550; 82803; 83615; 83880; 84484; 85025; 86140; 93005; 93010; 94640; 96374; 99285; J0456; J0696; J1815-GY; J2060; J2270; J7050